=== PATIENT | female | born 1985 | race Caucasian/White ===

== ENCOUNTER 2016-08-28 05:02 | Day surgery (SDC) | payer BC, OTHER ==
[2016-08-26 07:49] VITALS: BMI 67.0
[~2016-08-28] VITALS: Ht 152.4 cm; Wt 71.4 kg
[~2016-08-28 05:02] MED LIST: ASPI-391 PO; CIPR-255 PO; DXM/4 PO; HYDR-3419 PO; ONDA8TAB6 PO; OXYB5TAB74 PO; PHEN-876 PO; PROC1TAB5 PO
[2016-08-28 05:53] VITALS: BP 97/64; PULSE 84; TEMP 36.6; O2SAT 100; Ht 152.4 cm; Wt 71.4 kg
[2016-08-28] MEDS ORDERED: LACTATED RINGER'S 1000ML 1,000 ML IV SCH (06:00)
[2016-08-28] MEDS ORDERED: CEFAZOLIN 2000 MG/60 ML D5W IV SCH (06:00)
[2016-08-28] MEDS ORDERED: MIDAZOLAM HCL 1 MG/ML 2ML VIAL ONE (07:00)
[2016-08-28] MEDS ORDERED: FENTANYL CITRATE INJ 50 MCG/1 ML 2 ML VIAL ONE ×3 (07:00→08:20)
[2016-08-28] MEDS ORDERED: KETAMINE HCL INJ 50 MG/ML 10 ML VIAL ONE (07:00)
--- NOTE | 2016-08-28 07:09 | History & Physical Bridge Note ---
H&P Re-Evaluation Bridge Note: I have examined the patient, reviewed the History & Physical and in the interval since the performance of the History & Physical I have noted the following changes of clinical significance: No changes noted
[2016-08-28] MEDS ORDERED: CONRAY 30% 150ML BOTTLE ONE (07:12)
[2016-08-28] MEDS ORDERED: BELLADONNA/OPIUM SUPP 60 MG SUPP PR ONE ×2 (07:38→08:06)
[2016-08-28] MEDS ORDERED: LABETALOL HCL IV 5 MG/ML 20ML IV PRN (07:45)
[2016-08-28] MEDS ORDERED: MEPERIDINE HCL 25 MG/ML CARP IV PRN (07:45)
[2016-08-28] MEDS ORDERED: FENTANYL CITRATE INJ 50 MCG/1 ML 2 ML VIAL IV PRN (07:45)
[2016-08-28] MEDS ORDERED: EpHEDrine SULFATE INJ 50 MG/ML AMP IV PRN (07:45)
[2016-08-28] MEDS ORDERED: ATROPINE SULFATE 0.1 MG/ML 5ML SYR IV PRN (07:45)
[2016-08-28] MEDS ORDERED: ONDANSETRON INJ 2 MG/ML 2 ML VIAL IV PRN (07:45)
[2016-08-28] MEDS ORDERED: HYDROmorphone INJ 1 MG/ML SYR IV PRN (07:45)
--- NOTE | 2016-08-28 07:50 | [facility] Operative Report ---
Operative Report Operative Date Aug 28, 2016. Pre-Operative Diagnosis left ureteral and renal stones Post-Operative Diagnosis same Procedure(s) Performed cystoscopy, left ureteroscopy, basket stone extraction, stent removal Surgeon chloe It Infrastructure Specialist Surgeon(s) none Estimated Blood Loss 0mL Findings small stones left upper ureter and left lower pole kidney Fluids 600mL Specimens left ureteral and renal stones Drains none Anesthesia LMA Complication(s) None Disposition Recovery Room / PACU Indications left upper ureteral obstructing stone stented last week at outside hospital. She presents for stone removal. Description of Procedure Patient was given general LMA anesthesia and placed in lithotomy position. Her genitals were prepped and draped in sterile fashion. Time out held with team. I placed a 22 fr rigid cystoscope to bladder. The urethra is unremarkable. The UOs are in normal location. There is no inflammation of bladder or debris in bladder. Stent looks clean. I grasped the tip of her stent and withdrew it to the meatus. I placed a stiff wire up left ureter through the stent to the left kidney. I removed the stent and found it to be complete. I then placed a flexible ureteroscope up the left ureter under vision along side the wire. I found her ureteral stone in left upper ureter and used a 2.4 fr zero tip basket to retrieve it. It fit easily down the ureter whole.. I then re-introduced the flexible ureteroscope up ureter and into the kidney. the mid kidney calyces had each a tiny stone which was too small to corn picker. I did retrieve her 3mm left lower pole stone and removed it whole. I left bladder empty and concluded case. I placed a belladonna and opium suppository for post-op pain. She transferred to recovery under my escort, in stable condition. Plan: Home today Pyridium for dysuria x 3 days flomax daily until pain free oral pain meds as needed ASA 3 clean contaminated case 3 seconds fluoro ancef antibiotic integration manager I attest to the content of the Intraoperative Record and any orders documented therein. Any exceptions are noted below.
--- NOTE | 2016-08-28 07:53 | Discharge Instructions ---
Discharge Instructions Date of Service Aug 28, 2016. Admission Reason for Admission: Left Kidney Stone Discharge Discharge Diagnosis / Problem: left ureteral and renal stones Discharge Goals Goal(s): Decrease discomfort, Improve disease control Activity Recommendations Activity Limitations: resume your previous activity Lifting Limitations: none Exercise/Sports Limitations: none May Resume Sexual Activity: when tolerated Shower/Bathe: no limitations Driving or Machine Use: resume 1 day after discharge . Instructions / Follow-Up Instructions / Follow-Up there may be blood in urine for a few days you may have bladder and or left flank pain for a few days take flomax daily until pain free Discharge Diet Recommended Diet: Regular Diet Fluid Restriction: None Procedures Procedures Performed: left ureteroscopy with basket stone extraction and stent removal Pending Studies Studies pending at discharge: no Medical Emergencies . Who to Call and When: Medical Emergencies: If at any time you feel your situation is an emergency, please call 911 immediately. . Non-Emergent Contact Non-Emergency issues call your: Urologist ([phone]) Call Non-Emergent contact if: temperature is above 100.5 . . "Provider Documentation" section prepared by Jessica Pool. VTE Core Measure Inpt VTE Proph given/why not?: SCD's [place] Drug Monitoring Program Search Results: patient reviewed within database, no issues identified
--- NOTE | 2016-08-28 07:56 | DIAGNOSTIC IMAGING REPORT ---
FLUOROSCOPIC IMAGES FROM LEFT RETROGRADE EXAM CLINICAL HISTORY: Cystoscopy. Lithotripsy. Stent exchange. COMPARISON STUDY: No previous studies for comparison. Fluoroscopy time: 3.1 seconds. FINDINGS: 3 fluoroscopic images demonstrate removal of the left ureteral stent with suspected stone extraction. IMPRESSION: Fluoroscopic images from left ureteroscopy and stent removal. Electronically signed by: Selvin Recio M.D. 08/28/2016 7:55 AM Dictated Date/Time: 08/28/2016 7:52 AM
[2016-08-28] MEDS ORDERED: LIDOCAINE HCL 2% 2 ML VIAL (20MG/ML) ONE (08:03)
[2016-08-28] MEDS ORDERED: PROPOFOL IV EMULSION 10 MG/ML 20 ML VIAL IV ONE (08:03)
[2016-08-28 08:50] VITALS: BP 111/55; PULSE 90; TEMP 36.6; O2SAT 97
--- NOTE | 2016-08-28 09:01 | Anesthesiology Progress Note ---
Anesthesia Post Op Note Date & Time Aug 28, 2016 at 09:01 Vital Signs Pain Intensity: 0 Vital Signs Past 12 Hours Date Time Temp Pulse Resp B/P Pulse Ox O2 Delivery O2 Flow Rate FiO2 08/28/16 08:25 95 16 117/69 98 Room Air 08/28/16 08:15 88 16 108/70 98 Room Air 08/28/16 08:05 86 16 99/67 100 Mask 10 08/28/16 07:55 85 16 106/63 100 Mask 10 08/28/16 07:48 36 84 16 103/66 100 Mask 10 08/28/16 05:53 36.6 84 18 97/64 100 Room Air Notes Mental Status: alert / awake / arousable, participated in evaluation Pt Amnestic to Procedure: Yes Nausea / Vomiting: adequately controlled Pain: adequately controlled Airway Patency, RR, SpO2: stable & adequate BP & HR: stable & adequate Hydration State: stable & adequate Anesthetic Complications: no major complications apparent
[2016-08-28 09:25] VITALS: BP 92/65; PULSE 91; O2SAT 97
[2016-08-28 09:55] VITALS: BP 108/74; PULSE 96; O2SAT 98
[2016-08-28] MEDS ORDERED: NURSING VERBAL MED ORDER ONE (10:00)
[2016-08-28] MEDS ORDERED: ONDANSETRON INJ 2 MG/ML 2 ML VIAL IV ONE (11:00)
[2017-03-06] MEDS ORDERED: IBUP-1450 PO (10:33)
[2017-03-06] MEDS ORDERED: TAMO20TA47 PO (10:33)
[2017-03-06] MEDS ORDERED: HYDR2TAB48 PO (10:33)
== END 2016-08-28 10:30 | disposition home or self-care (01) ==
LOC: C.ACU 05:02
PROVIDERS: ATTEND Urology
DX: N20.2 Calculus of kidney with calculus of ureter (principal); C50.412 Malignant neoplasm of upper-outer quadrant of left female breast

== ENCOUNTER → 2017-06-24 | Day surgery (SDC) | payer OTHER ==
[2017-06-17 09:51] VITALS: BMI 37.0
[~2017-06-24] VITALS: Ht 152.4 cm; Wt 86.4 kg
[~2017-06-24] MED LIST changes: -ASPI-391 PO; -CIPR-255 PO; -DXM/4 PO; -HYDR-3419 PO; +LIDOCAINE HCL 2% 2 ML VIAL (20MG/ML) ONE; +NURSING VERBAL MED ORDER ONE; -ONDA8TAB6 PO; +ONDANSETRON INJ 2 MG/ML 2 ML VIAL IV PRN; -OXYB5TAB74 PO; +PANT40TA PO; -PHEN-876 PO; -PROC1TAB5 PO; +PROPOFOL IV EMULSION 10 MG/ML 20 ML VIAL IV ONE; +RANI150T3 PO; +TAMO20TA9 PO
[2017-06-24 11:13] VITALS: Ht 152.4 cm; Wt 86.4 kg
--- NOTE | 2017-06-24 11:49 | Endo History and Physical ---
History & Physical Date of Service: Jun 24, 2017. Chief Complaint: DARK STOOLS Referring Physician: DR. KAUR History of Present Illness Patient with a history of dark stool and some postprandial epigastric discomfort. She presents today for upper endoscopy. She denies use of nonsteroidals and has history notable for a cholecystectomy performed about 7 years ago. She is presently on chemotherapy for breast cancer. Past Surgical History Hx Cardiac Surgery: No Hx Internal Defibrillator: No Hx Pacemaker: No Hx Abdominal Surgery: No (JUAN AND THEN SURGERY AGAIN FOR REMOVAL "BLOOD CLOT ") Hx of Implantable Prosthesis: No Hx Post-Op Nausea and Vomiting: No Hx Cancer Surgery: Yes (LT BREAST MASTECTOMY WITH TE) Hx Thoracic Surgery: No Hx Orthopedic: No Hx Urinary Tract Surgery: Yes (CYSTOSCOPY WITH STENT) Family History Polyp Social History Smoking Status: Never Smoker Hx Substance Use: No Hx Alcohol Use: No Allergies Coded Allergies: Oxycodone (Verified Allergy, Severe, THROAT SWELLING--NOT ALLERGIC TO APAP W/ CODEINE OR VICODIN, 06/17/17) Uncoded Allergies: JEWELRY (Allergy, Unknown, EARRINGS CAUSE REDNESS AND ITCHING, 06/17/17) Current Medications Reported Home Medications Medications Dose Route/Sig Max Daily Dose Days Date Category Zantac (Ranitidine HCl) 150 Mg Tab 150 Mg PO HS 06/17/17 Reported Protonix (Pantoprazole Sodium) 40 Mg Tab 40 Mg PO QAM 06/17/17 Reported Nolvadex (Tamoxifen Citrate) 20 Mg Tab 20 Mg PO QAM 03/06/17 Reported Vital Signs Weight (Kilograms): 86.36 Height (Feet): 5 Height (Inches): 0 Date Time Temp Pulse Resp B/P (MAP) Pulse Ox O2 Delivery O2 Flow Rate FiO2 06/24/17 11:31 36.6 76 18 108/60 (76) 100 Room Air Physical Exam General Appearance: no apparent distress Respiratory/Chest: Auscultation: breath sounds normal Cardiovascular: Heart Auscultation: RRR Abdomen: Inspection & Palpation: soft Assessment and Plan Patient with a history of postprandial discomfort. Given the dark stools will proceed with upper endoscopy today to screen for evidence of peptic ulcer disease. We have discussed the risks of upper endoscopy to include bleeding, infection, perforation aspiration and pain.
--- NOTE | 2017-06-24 12:08 | GI REPORT ---
Procedure Date: 06/24/2017 11:22 AM Procedure: Upper GI endoscopy Indications: Epigastric abdominal pain, Abdominal pain in the right upper quadrant Medicines: Monitored Anesthesia Care Complications: No immediate complications. Estimated blood loss: Minimal. Estimated Blood Loss: Estimated blood loss was minimal. Procedure: Pre-Anesthesia Assessment: - Prior to the procedure, a History and Physical was performed, and patient medications, allergies and sensitivities were reviewed. The patient's tolerance of previous anesthesia was reviewed. - The risks and benefits of the procedure and the sedation options and risks were discussed with the patient. All questions were answered and informed consent was obtained. - Patient identification and proposed procedure were verified prior to the procedure by the physician, the nurse and the environment artist. The procedure was verified in the procedure room. - Pre-procedure physical examination revealed no contraindications to sedation. - ASA Grade Assessment: III - A patient with severe systemic disease. - After reviewing the risks and benefits, the patient was deemed in satisfactory condition to undergo the procedure. - The anesthesia plan was to use monitored anesthesia care (MAC). - Immediately prior to administration of medications, the patient was re-assessed for adequacy to receive sedatives. - The heart rate, respiratory rate, oxygen saturations, blood pressure, adequacy of pulmonary ventilation, and response to care were monitored throughout the procedure. - The physical status of the patient was re-assessed after the procedure. After obtaining informed consent, the endoscope was passed under direct vision. Throughout the procedure, the patient's blood pressure, pulse, and oxygen saturations were monitored continuously. The scope was introduced through the mouth, and advanced to the third part of duodenum. The upper GI endoscopy was accomplished without difficulty. The patient tolerated the procedure well. Findings: The examined esophagus was normal. The Z-line was regular and was found 33 cm from the incisors. Diffuse mild inflammation characterized by congestion (edema), erythema and granularity was found in the entire examined stomach. Biopsies were taken with a cold forceps for histology. Estimated blood loss was minimal. The examined duodenum was normal. Biopsies were taken with a cold forceps for histology. Estimated blood loss was minimal. Impression: - Normal esophagus. - Z-line regular, 33 cm from the incisors. - Bile gastritis. Biopsied. - Normal examined duodenum. Biopsied. Recommendation: - Discharge patient to home (ambulatory). - Advance diet as tolerated today. - Await pathology results. - Use sucralfate tablets 1 gram PO BID for 6 weeks. - If symptoms persist would consider an EUS or RUQ US to evaluate for gallstones. Felipe Hassan D.O. Felipe Hassan, DO 06/24/2017 12:07:47 PM This report has been signed electronically. Note Initiated On: 06/24/2017 11:22 AM I attest to the content of the Intraoperative Record and orders documented therein, exceptions below
--- NOTE | 2017-06-24 12:09 | Discharge Instructions ---
Endoscopy Patient Instructions Date / Procedure(s) Performed Jun 24, 2017. EGD Allergy Information Coded Allergies: Oxycodone (Verified Allergy, Severe, THROAT SWELLING--NOT ALLERGIC TO APAP W/ CODEINE OR VICODIN, 06/17/17) Uncoded Allergies: JEWELRY (Allergy, Unknown, EARRINGS CAUSE REDNESS AND ITCHING, 06/17/17) Discharge Date / Findings Jun 24, 2017. Normal esophagus Normal small intestine Mild gastritis Medication Instructions Reported Home Medications Medications Dose Route/Sig Max Daily Dose Days Date Category Zantac (Ranitidine HCl) 150 Mg Tab 150 Mg PO HS 06/17/17 Reported Protonix (Pantoprazole Sodium) 40 Mg Tab 40 Mg PO QAM 06/17/17 Reported Nolvadex (Tamoxifen Citrate) 20 Mg Tab 20 Mg PO QAM 03/06/17 Reported Provider Instructions Activity Restrictions - No exercising or heavy lifting for 24 hours. - Do not drink alcohol the day of the procedure. - Do not drive a car or operate machinery until the day after the procedure. - Do not make any important decisions or sign important papers in 24 hours after the procedure. Following Day: - Return to full activity which may include returning to work/school. Diet Start your diet with liquids and light foods (jello, soup, juice, toast). Then eat your usual diet if not nauseated. Treatment For Common After Affects For mild abdominal pain, bloating, or excessive gas: - Rest - Eat lightly - Lie on right side Follow-Up Information Follow-up with DR. AKUR as scheduled Try Carafate twice daily for 6 weeks If symptoms persist would suggest further evaluation with an ultrasound of the bile duct or perhaps endoscopic ultrasound Anesthesia Information What You Should Know You have had a procedure that required some medicine to reduce anxiety and discomfort. This treatment is called moderate sedation. After receiving the treatment, you may be sleepy, but you will be able to breathe on your own. The effects of the treatment may last for several hours. Follow these instructions along with Activity/Diet recommendations noted above: * Do NOT do anything where dizziness or clumsiness would be dangerous. * Rest quietly at home today, then you can be up and about tomorrow. * Have a responsible person stay with you the rest of today. * You may have had an I.V. today. If so, you may take the dressing off later today. Recommendations Call your doctor if: * Trouble breathing * Continuous vomiting for more than 24 hours * Temperature above 101 degrees * Severe abdominal pain or bloating * Pain not relieved by pain medicine ordered * There is increased drainage or redness from any incision * A large amount of rectal bleeding greater than 2-3 tablespoons. (If you had a polyp/s removed or have hemorrhoids, a small amount of blood - from the rectum is to be expected.) * You have any unanswered questions or concerns. IN THE EVENT OF A SERIOUS EMERGENCY, GO TO THE NEAREST EMERGENCY ROOM Your discharge instructions were prepared by provider Felipe Hassan. Patient Instructions Signature Page [place] [place] Patient (or Guardian) Signature/Date: I have read and understand the instructions given to me by my caregivers. Caregiver/RN/Doctor Signature/Date: The above-named patient and/or guardian has received patient instructions on this date. + Original Patient Signature Page (only) stays with chart. Please make copy for patient.
[2017-06-24 12:50] VITALS: BP 112/68; PULSE 72; O2SAT 100
--- NOTE | 2017-06-24 13:00 | Anesthesiology Progress Note ---
Anesthesia Post Op Note Date & Time Jun 24, 2017 at 12:59 Vital Signs Pain Intensity: 0 Vital Signs Past 12 Hours Date Time Temp Pulse Resp B/P (MAP) Pulse Ox O2 Delivery O2 Flow Rate FiO2 06/24/17 12:50 72 20 112/68 (83) 100 Room Air 06/24/17 12:30 70 20 105/66 (79) 100 Room Air 06/24/17 12:13 87 18 119/64 (82) 98 Room Air 06/24/17 11:31 36.6 76 18 108/60 (76) 100 Room Air Notes Mental Status: alert / awake / arousable, participated in evaluation Pt Amnestic to Procedure: Yes Nausea / Vomiting: adequately controlled Pain: adequately controlled Airway Patency, RR, SpO2: stable & adequate BP & HR: stable & adequate Hydration State: stable & adequate Anesthetic Complications: no major complications apparent
== END | disposition home or self-care (01) ==
LOC: C.GI 10:47
PROVIDERS: ATTEND Internal Medicine Gastroenterology
DX: K29.50 Unspecified chronic gastritis without bleeding (principal); R10.11 Right upper quadrant pain; Z90.49 Acquired absence of other specified parts of digestive tract; C50.912 Malignant neoplasm of unspecified site of left female breast; Z90.12 Acquired absence of left breast and nipple; Z83.71 Family history of colonic polyps; Z88.5 Allergy status to narcotic agent

== ENCOUNTER 2017-08-09 11:35 | Emergency (ER) | payer OTHER ==
[~2017-08-09] VITALS: Ht 154.9 cm; Wt 91.0 kg
[~2017-08-09 11:35] MED LIST changes: -LIDOCAINE HCL 2% 2 ML VIAL (20MG/ML) ONE; -NURSING VERBAL MED ORDER ONE; -ONDANSETRON INJ 2 MG/ML 2 ML VIAL IV PRN; -PROPOFOL IV EMULSION 10 MG/ML 20 ML VIAL IV ONE; +SUCR1TAB29 PO
[2017-08-09 11:39] VITALS: Ht 154.9 cm; Wt 91.0 kg
[2017-08-09] MEDS ORDERED: KETOROLAC TROMETHAMINE 30 MG/ML VIAL IV STA (11:51)
[2017-08-09] MEDS ORDERED: SODIUM CHLORIDE 0.9% 1000ML 1,000 ML IV STA (11:51)
[2017-08-09] MEDS ORDERED: ONDANSETRON INJ 2 MG/ML 2 ML VIAL IV STA (11:51)
--- NOTE | 2017-08-09 11:59 | EMERGENCY ROOM VISIT NOTE ---
History Report prepared by Aga: Vy Melo Under the Supervision of: Dr. Tyrel Gomez M.D. 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 She states she has a history of kidney stones and she thinks this is what it might be as it feels similar. Movement is not a worsening factor. She notes she took Tylenol but it did She is nauseous but denies any vomiting, fevers, chest pain, LOC, blood in her urine, or the chance of . He does report mild dysuria. Pain is severe in nature when it comes, the pain is pulsating and comes and goes lasting for a few minutes. Mild nausea. 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 A total of ten systems were reviewed and were otherwise negative. Past Medical & Surgical Surgical Problems: (1) Hx of cholecystectomy (2) [place] teeth extracted Family History Cancer Diabetes mellitus Gallbladder disease Kidney disease Kidney stones Seizures Social History Smoking Status: Never Smoker Marital Status: Housing Status: lives with family Occupation Status: employed Current/Historical Medications Scheduled Pantoprazole (Protonix), 40 MG PO QAM Ranitidine Hcl (Zantac), 150 MG PO HS Sucralfate (Carafate), 1 TAB PO BID Tamoxifen (Nolvadex), 20 MG PO QAM Tamsulosin Hcl (Flomax), 0.4 MG PO DAILY Scheduled PRN Ibuprofen Tab (Motrin), 800 MG PO Q8H PRN for Pain Allergies Coded Allergies: Oxycodone (Verified Allergy, Severe, THROAT SWELLING--NOT ALLERGIC TO APAP W/ CODEINE OR VICODIN, 06/17/17) Uncoded Allergies: JEWELRY (Allergy, Unknown, EARRINGS CAUSE REDNESS AND ITCHING, 06/17/17) Physical Exam Vital Signs Date Time Temp Pulse Resp B/P (MAP) Pulse Ox O2 Delivery O2 Flow Rate FiO2 08/09/17 13:52 36.7 78 16 94/79 99 08/09/17 11:39 36.7 78 16 133/85 99 Physical Exam Physical Exam GENERAL: She is oriented to person, place, and time. She appears well- developed and well-nourished. She does not appear distressed. ____ HENT: Exam performed. Head: Normocephalic and atraumatic. Right Ear: External ear normal. No mastoid tenderness. Left Ear: External ear normal. No mastoid tenderness. Mouth/Throat: The oropharynx is clear and moist. No trismus in the jaw. No dental abscesses or uvula swelling. No oropharyngeal exudate or tonsillar abscesses. ____ EYES: Conjunctivae and EOM are normal. Pupils are equal, round, and reactive to light. Right eye exhibits no discharge. Left eye exhibits no discharge. No scleral icterus. ____ NECK: Normal range of motion. Neck supple. No JVD present. No spinous process tenderness present. No carotid bruit present. No rigidity. No tracheal deviation and normal range of motion present. No Brudzinski's sign and no Kernig 's sign noted. ____ CV: Normal rate, regular rhythm, normal heart sounds and intact distal pulses. There is no peripheral edema. Palpable radial pulses bue. ____ PULM/CHEST: Effort normal and breath sounds normal. No respiratory distress. No stridor. She has no wheezes. She has no rales. Chest Wall: She exhibits no tenderness. ____ ABD: Left sided CVA tenderness, LLQ pain on palpation of the abdomen. No rigidity or guarding. Dodson sign negative. No pain on palpation over McBurney 's point. Rovsing negative. MUSC/SKEL: Normal range of motion. There is no peripheral edema, tenderness or deformity. LYMPH: No cervical adenopathy. ____ NEURO: She is alert and oriented to person, place, and time. She has normal strength. No cranial nerve deficit or sensory deficit. Coordination and gait normal. GCS eye subscore is 4. GCS verbal subscore is 5. GCS motor subscore is 6. Cerebellar tests wnl. ____ SKIN: Skin is warm and dry. She is not diaphoretic. ____ PSYCH: She has a normal mood and affect. Her behavior is normal. Judgment and thought content normal. ____ Medical Decision & Procedures ER Provider Diagnostic Interpretation: Radiology results as stated below per my review and radiologist interpretation: ABD/PELVIS WITHOUT FOR STONE HISTORY: 31 years-old Female L flank pain ro rebecca sone acute left-sided flank pain with history of kidney stones COMPARISON: CT of the abdomen 03/26/2010 TECHNIQUE: Multiple axial CT images of the abdomen and pelvis were obtained without contrast. A dose lowering technique was used consistent with the principals of SAMY. FINDINGS: Lung bases appear generally clear. There is no pneumatosis or pneumoperitoneum identified. Imaged inferior cardiac chambers are unremarkable. Prior cholecystectomy. Hepatic steatosis. No intrahepatic biliary ductal dilation. Spleen, pancreas and adrenal glands are within normal limits. 3 mm nonobstructing calculus of the superior pole left kidney. No right-sided renal calculi, ureteral calculi or obstructive uropathy. Ureters and urinary bladder are within normal limits. Linear 7 mm calcification is seen within the region of the left uterine fundus which may reflect a calcified fibroid. Adnexa are unremarkable. Aorta is normal in course and caliber. No bulky adenopathy. No bowel obstruction or focal bowel wall thickening. Appendix appears normal. Subcutaneous device with partially imaged catheter overlies the left anterior upper abdominal wall. Soft tissues are otherwise unremarkable. Mild diastases recti. Bones appear intact. IMPRESSION: 1. 3 mm nonobstructing calculus of the superior pole left kidney. No ureteral calculi or obstructive uropathy. 2. No bowel obstruction or focal bowel wall thickening. Normal appendix. 3. Hepatic steatosis. 4. Prior cholecystectomy. The above report was generated using voice recognition software. It may contain grammatical, syntax or spelling errors. Electronically signed by: Rashad Navarrete M.D. 08/09/2017 12:55 PM Dictated Date/Time: 08/09/2017 12:49 PM Laboratory Results 08/09/17 12:10 Red Blood Count 3.94, Mean Corpuscular Volume 80.5, Mean Corpuscular Hemoglobin 29.4, Mean Corpuscular Hemoglobin Concent 36.6, Mean Platelet Volume 9.2, Neutrophils (%) (Auto) 70.6, Lymphocytes (%) (Auto) 20.7, Monocytes (%) (Auto) 5.4, Eosinophils (%) (Auto) 2.2, Basophils (%) (Auto) 0.3, Neutrophils # (Auto) 2.60, Lymphocytes # (Auto) 0.76, Monocytes # (Auto) 0.20, Eosinophils # (Auto) 0.08, Basophils # (Auto) 0.01 08/09/17 12:10 Test 08/09/17 12:10 08/09/17 12:15 White Blood Count 3.68 K/uL (4.8-10.8) Red Blood Count 3.94 M/uL (4.2-5.4) Hemoglobin 11.6 g/dL (12.0-16.0) Hematocrit 31.7 % (37-47) Mean Corpuscular Volume 80.5 fL (80-100) Mean Corpuscular Hemoglobin 29.4 pg (25-34) Mean Corpuscular Hemoglobin Concent 36.6 g/dl (32-36) Platelet Count 135 K/uL (130-400) Mean Platelet Volume 9.2 fL (7.4-10.4) Neutrophils (%) (Auto) 70.6 % Lymphocytes (%) (Auto) 20.7 % Monocytes (%) (Auto) 5.4 % Eosinophils (%) (Auto) 2.2 % Basophils (%) (Auto) 0.3 % Neutrophils # (Auto) 2.60 K/uL (1.4-6.5) Lymphocytes # (Auto) 0.76 K/uL (1.2-3.4) Monocytes # (Auto) 0.20 K/uL (0.11-0.59) Eosinophils # (Auto) 0.08 K/uL (0-0.5) Basophils # (Auto) 0.01 K/uL (0-0.2) RDW Standard Deviation 38.9 fL (36.4-46.3) RDW Coefficient of Variation 13.5 % (11.5-14.5) Immature Granulocyte % (Auto) 0.8 % Immature Granulocyte # (Auto) 0.03 K/uL (0.00-0.02) Anion Gap 5.0 mmol/L (3-11) Est Creatinine Clear Calc Drug Dose 153.6 ml/min Estimated GFR () 144.7 Estimated GFR (Non- 124.9 BUN/Creatinine Ratio 25.6 (10-20) Calcium Level 9.1 mg/dl (8.5-10.1) Urine Color YELLOW Urine Appearance CLEAR (CLEAR) Urine pH 5.0 (4.5-7.5) Urine Specific Devine 1.022 (1.000-1.030) Urine Protein NEG (NEG) Urine Glucose (UA) NEG (NEG) Urine Ketones NEG (NEG) Urine Occult Blood NEG (NEG) Urine Nitrite NEG (NEG) Urine Bilirubin NEG (NEG) Urine Urobilinogen NEG (NEG) Urine Leukocyte Esterase SMALL (NEG) Urine WBC (Auto) 1-5 /hpf (0-5) Urine RBC (Auto) 0-4 /hpf (0-4) Urine Hyaline Casts (Auto) 1-5 /lpf (0-5) Urine Epithelial Cells (Auto) >30 /lpf (0-5) Urine Bacteria (Auto) 1+ (NEG) Urine Test NEG (NEG) Laboratory results reviewed by me Medications Administered Medications (Trade) Dose Ordered Sig/Frank Route Start Time Stop Time Status Last Admin Dose Admin Sodium Chloride 1,000 ml @ 999 mls/hr Q1H1M STAT IV 08/09/17 11:51 08/09/17 12:51 DC 08/09/17 12:11 999 MLS/HR Ketorolac Tromethamine (Toradol Inj) 15 mg NOW STAT IV 08/09/17 11:51 08/09/17 11:53 DC 08/09/17 12:11 15 MG Ondansetron HCl (Zofran Inj) 4 mg NOW STAT IV 08/09/17 11:51 08/09/17 11:53 DC 08/09/17 12:10 4 MG ED Course 1150: The patient was evaluated in room C5. A complete history and physical exam was performed. 1151: Zofran Inj 4 mg IV Toradol Inj 15 mg IV Sodium Chloride 1000 ml @ 999 mls/hr IV 1323: Vital signs stable. Patient reports her pain is better status post analgesia. Labs within normal limits CT shows kidney stones without hydronephrosis or hydroureter. Dc with analgesia and Flomax. DISCHARGE - Plan of care discussed with patient and questions answered. The patient was given both verbal and printed discharge instructions. The patient verbalized understanding and ability to comply. The patient is to seek outpatient follow up as noted in the discharge instructions. The patient verbalized understanding and ability to comply. The patient is discharged in stable condition. The patient was instructed to return for worsening symptoms. Medical Decision Vital signs stable. Patient reports her pain is better status post analgesia. Labs within normal limits CT shows kidney stones without hydronephrosis or hydroureter. Dc with analgesia and Flomax. DISCHARGE - Plan of care discussed with patient and questions answered. The patient was given both verbal and printed discharge instructions. The patient verbalized understanding and ability to comply. The patient is to seek outpatient follow up as noted in the discharge instructions. The patient verbalized understanding and ability to comply. The patient is discharged in stable condition. The patient was instructed to return for worsening symptoms. Medication Reconcilliation Current Medication List: was personally reviewed by me Blood Pressure Screening Patient's blood pressure: Normal blood pressure Blood pressure disposition: Did not require urgent referral Impression Primary Impression: Kidney stone Scribe Attestation The scribe's documentation has been prepared under my direction and personally reviewed by me in its entirety. I confirm that the note above accurately reflects all work, treatment, procedures, and medical decision making performed by me. The chart was completed utilizing [employer] Speech voice recognition software. Grammatical errors, random word insertions, pronoun errors, and incomplete sentences are an occasional consequence of this system due to software limitations, ambient noise, and hardware issues. Any formal questions or concerns about the content, text, or information contained within the body of this dictation should be directly addressed to the physician for clarification. Departure Information Dispostion Home / Self-Care Prescriptions Tamsulosin Hcl (FLOMAX) 0.4 Mg Cap 0.4 MG PO DAILY for 7 Days, #7 CAP Prov: Tyrel Gomez M.D. 08/09/17 Ibuprofen Tab (MOTRIN) 800 Mg Tab 800 MG PO Q8H Y for Pain, #30 TAB Prov: Tyrel Gomez M.D. 08/09/17 Referrals No Doctor, Assigned (PCP) Forms HOME CARE DOCUMENTATION FORM, IMPORTANT VISIT INFORMATION Patient Instructions My [facility] Additional Instructions Return to the emergency department if you develop fever greater than 100.4, inability to urinate, extreme nausea vomiting
[2017-08-09 12:27] LABS: BASO % 0.3 %; BASO ABS # 0.01 K/uL (0-0.2); EOS % 2.2 %; EOS ABS # 0.08 K/uL (0-0.5); HEMATOCRIT 31.7 % (37-47); HEMOGLOBIN 11.6 g/dL (12.0-16.0); IG# 0.03 K/uL (0.00-0.02); LYMPH % 20.7 %; LYMPH ABS # 0.76 K/uL (1.2-3.4); MEAN CELL VOLUME 80.5 fL (80-100); MEAN CORPUSCULAR HEMOGLOBIN 29.4 pg (25-34); MEAN CORPUSCULAR HGB CONC 36.6 g/dl (32-36); MEAN PLATELET VOLUME 9.2 fL (7.4-10.4); MONO % 5.4 %; NEUT % 70.6 %; PLATELET COUNT 135 K/uL (130-400); RED CELL DISTRIBUTION WIDTH CV 13.5 % (11.5-14.5); RED CELL DISTRIBUTION WIDTH SD 38.9 fL (36.4-46.3); WHITE BLOOD COUNT 3.68 K/uL (4.8-10.8)
[2017-08-09 12:48] LABS: CALCIUM 9.1 mg/dl (8.5-10.1); CREATININE 0.54 mg/dl (0.60-1.20)
--- NOTE | 2017-08-09 12:56 | DIAGNOSTIC IMAGING REPORT ---
ABD/PELVIS WITHOUT FOR STONE HISTORY: 31 years-old Female L flank pain ro kdney sone acute left-sided flank pain with history of kidney stones COMPARISON: CT of the abdomen 03/26/2010 TECHNIQUE: Multiple axial CT images of the abdomen and pelvis were obtained without contrast. A dose lowering technique was used consistent with the principals of SAMY. FINDINGS: Lung bases appear generally clear. There is no pneumatosis or pneumoperitoneum identified. Imaged inferior cardiac chambers are unremarkable. Prior cholecystectomy. Hepatic steatosis. No intrahepatic biliary ductal dilation. Spleen, pancreas and adrenal glands are within normal limits. 3 mm nonobstructing calculus of the superior pole left kidney. No right-sided renal calculi, ureteral calculi or obstructive uropathy. Ureters and urinary bladder are within normal limits. Linear 7 mm calcification is seen within the region of the left uterine fundus which may reflect a calcified fibroid. Adnexa are unremarkable. Aorta is normal in course and caliber. No bulky adenopathy. No bowel obstruction or focal bowel wall thickening. Appendix appears normal. Subcutaneous device with partially imaged catheter overlies the left anterior upper abdominal wall. Soft tissues are otherwise unremarkable. Mild diastases recti. Bones appear intact. IMPRESSION: 1. 3 mm nonobstructing calculus of the superior pole left kidney. No ureteral calculi or obstructive uropathy. 2. No bowel obstruction or focal bowel wall thickening. Normal appendix. 3. Hepatic steatosis. 4. Prior cholecystectomy. The above report was generated using voice recognition software. It may contain grammatical, syntax or spelling errors. Electronically signed by: Rashad Navarrete M.D. 08/09/2017 12:55 PM Dictated Date/Time: 08/09/2017 12:49 PM
[2017-08-09] MEDS ORDERED: TAMS0.4C38 PO (13:35)
[2017-08-09] MEDS ORDERED: IBUP-1451 PO (13:35)
[2017-08-09 13:52] VITALS: BP 94/79; PULSE 78; TEMP 36.7; O2SAT 99
== END 2017-08-09 13:55 | disposition home or self-care (01) ==
LOC: C.EDB 11:36 → C.EDC 13:55
DX: N20.0 Calculus of kidney (principal); Z90.49 Acquired absence of other specified parts of digestive tract; Z88.6 Allergy status to analgesic agent; Z91.048 Other nonmedicinal substance allergy status; Z83.79 Family history of other diseases of the digestive system; Z82.0 Family history of epilepsy and other diseases of the nervous system; Z83.3 Family history of diabetes mellitus; Z84.1 Family history of disorders of kidney and ureter

== ENCOUNTER → 2017-08-14 | Outpatient (CLI) | payer OTHER ==
[~2017-08-14] MED LIST changes: +IBUP-1451 PO; +OPTIRAY 320 IV PRN; +TAMS0.4C38 PO
--- NOTE | 2017-08-14 16:07 | DIAGNOSTIC IMAGING REPORT ---
HEAD COMBO HISTORY: 31 years-old Female C50.412, R51, H53.10 acute headaches with concern for intracranial metastasis. COMPARISON: CT head 02/28/2015, MRI brain 08/31/2015 TECHNIQUE: Multiple axial CT images of the head were obtained both with and without the use of IV contrast. A dose lowering technique was used consistent with the principals of SAMY. FINDINGS: CSF attenuating extra-axial lesion located between the lateral ventricles within the region of the superior quadrigeminal plate cistern suggesting arachnoid cyst is redemonstrated, 2.2 x 2.0 cm, previously measuring 1.9 x [address] study dated 02/28/2015. There is no acute intracranial hemorrhage, midline shift or hydrocephalus. No areas of territorial infarction. There is no abnormal intra-axial or extra-axial enhancement identified. The cerebral venous sinuses appear patent. No calvarial fracture. Unchanged lucent 6 mm lesion of the midline frontal calvarium suggests benign lesion based on stability. Mastoid air cells and middle ear cavities are clear. Mucosal thickening of the imaged maxillary sinuses. Soft tissues and orbits are unremarkable. IMPRESSION: 1. No acute intracranial abnormality identified. 2. Slightly increased size of the extra-axial CSF attenuating structure interposed between the lateral ventricles within the region of the superior quadrigeminal plate cistern suggesting arachnoid cyst, 2.2 cm. 3. No abnormal intra-axial or extra-axial enhancement. The above report was generated using voice recognition software. It may contain grammatical, syntax or spelling errors. Electronically signed by: Rashad Navarrete M.D. 08/14/2017 4:06 PM Dictated Date/Time: 08/14/2017 3:58 PM
== END | disposition home or self-care (01) ==
LOC: C.CTS 15:29
PROVIDERS: ATTEND Physician Assistant Medical
DX: C50.412 Malignant neoplasm of upper-outer quadrant of left female breast (principal); R51 Headache; H53.10 Unspecified subjective visual disturbances

== ENCOUNTER → 2017-09-18 | Outpatient (CLI) | payer OTHER ==
[~2017-09-18] MED LIST changes: +ACET-1256 PO; +GABA-112 PO; +LEVE250T PO; +MAGN400T6 PO; -OPTIRAY 320 IV PRN; +RIBOCAP PO; -TAMS0.4C38 PO; +VITB2 PO
[2017-09-18 13:45] VITALS: BP 100/66; PULSE 83; TEMP 36.5; O2SAT 96
--- NOTE | 2017-09-18 15:18 | Radiation Oncology Follow-Up ---
Radiation Oncology Follow-Up Date of Visit Sep 18, 2017. Reason For Visit One-month follow-up in cancer survivorship care plan Radiation Completion Date finished 08-26-17 Diagnosis (1) Malignant neoplasm of upper-outer quadrant of left female breast Status: Acute Onset Date: 08/14/2016 Histology Subtype: Ductal Stage: ll Permanent Comment: Self detected left breast mass Status post mammography Status post breast and axillary biopsy 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, progesterone receptor positive, HER-2/jeancarlos negative Clinical stage T2 N1 BRCA 1/2 negative Status post chemotherapy with Taxotere, carboplatin, Herceptin, and pertuzumab 6 cycles ongoing treatment with Herceptin Status post skin sparing simple mastectomy and sentinel lymph node biopsy ( attempted) then axillary node dissection Stage ypT1mi ypN0 (i+) M0 Initiation of tamoxifen therapy Status post completion of radiation therapy to the left chest wall, supraclavicular area and axilla. Treatment was completed August 26, 2017. She received 6240 cGy. Last Edited By: Nanda Nathan on Sep 05, 2017 08:16 History of Present Illness Ms. West is without a family history of breast cancer. The patient self detected a left breast mass and was sent for a diagnostic unilateral mammogram on 08/14/2016. She had noted bilateral breast pain for the prior 3-4 months more on the left side. This showed a left breast mass at the 2 o'clock position that was firm and thickened in the area indicated by the patient. The mammogram demonstrated a 2.1 cm mass at the 2:00 stereotactic with irregular margins and surrounding distortions. There were extensive pleomorphic calcifications extending over a 9.5 cm area in the upper outer quadrant of the left breast. Targeted ultrasound demonstrated an oval mass with spiculated margins measuring 2.0 x 2.1 x 1.8 cm at the 2 o'clock position 3 cm from the nipple. Within the left axilla there were 2 abnormal appearing lymph nodes with thickened cortices and mild cortical hypervascularity. These findings were worrisome for breast carcinoma with lymph node metastasis. Ultrasound guided core biopsy was recommended. That same day the patient underwent ultrasound-guided biopsy of the left breast 2 o'clock position 7 cm from the nipple. This revealed an invasive ductal carcinoma with apocrine features and histologic grade 3. The tumor measured 1 cm in greatest dimension by biopsy. Biopsy of a left axillary abnormal lymph node was also positive for metastatic carcinoma measuring 0.6 cm in greatest dimension. Estrogen receptors were strongly positive, 100%). Progesterone receptors were strongly positive (100%) and HER-2/jeancarlos oncogene expression is positive (3+). Accession #: [id number]. The patient underwent a staging PET/CT scan on 08/28/2016. This showed no evidence of metastatic disease. This demonstrated an active irregular mass and level II axillary lymph node measuring 1 cm and to level I lymph nodes measuring 1.1 and 0.7 cm. MRI of the bilateral breasts were performed on 2016. This showed extensive masslike and non-mass like enhancement involving the left breast from the 1:00 to 4 o'clock position. This area measured 11.5 x 3.7 x 6.2 cm. There was also the left axillary lymph nodes appreciated which were abnormal. No right breast abnormalities were appreciated. MRI of the brain on 08/22/2016 was also performed and was negative for metastatic disease. The patient was seen initially by Dr. Hassan and subsequently by Dr. Holt to discuss the role of neoadjuvant systemic chemotherapy. He recommended neoadjuvant systemic chemotherapy. This would consist of Taxotere, Carboplatin , Herceptin and Pertuzumab (TCH P). The patient agreed and she received her first cycle of chemotherapy on 09/09/2016 the patient was ultimately able to complete all cycles of the systemic chemotherapy and tolerated fairly well. He was started on tamoxifen around January 13. She is to continue taking Herceptin every 3 weeks for a total of one year. Clinical examination showed complete resolution of the left upper outer quadrant mass with a persistent small firm palpable node in the left axilla. The patient was seen by Dr. Hassan and by Dr. Storey plastic surgeon for consideration of reconstruction. The ultimate plan was to proceed with a left breast mastectomy and immediate placement of a subpectoral tissue promotional marketing agent. They did discuss the possibility of a prophylactic right mastectomy. The patient however didn't undergo genetic counseling and was BRCA1 and 2 negative. The patient ultimately opted to proceed with a left breast mastectomy only with immediate reconstruction performed on 02/18/2017. The mastectomy specimen revealed a single focus of residual ductal carcinoma measuring less than 1 mm status post neoadjuvant chemotherapy. The distance from the closest margin was 2 cm. No lymphovascular invasion was appreciated. 10 axillary lymph nodes were taken there was malignant cell cluster no larger than 0.2 mm noted in 1 lymph node. The final AJCC pathologic staging was therefore ypTmi pN0(i+), ER positive, ID positive and HER-2/jeancarlos positive. Following surgery the patient started tissue expansion. She has had one injection to date. The planned volume is 550-660 mL. She is getting injections every 2 weeks. The patient is continuing on her Herceptin and tamoxifen. We are seeing her today to discuss the role of adjuvant radiation. She completed conventional radiation therapy to the left chest wall, supraclavicular area and axilla on August 26, 2017. She received 6240 cGy. Interim History She has been doing well over the past month in regards to her breast treatment. The skin healed without difficulty. She does have some mild tanning that has continued. She denies any pain or irritation. She has had no changes of the axilla. She has had no swelling of her arm. She continues on Herceptin every 3 weeks. She was seen by a neurosurgeon in [facility] due to the changes found on the CT of the head. 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 She may at some point have to have this drained. For now it is going to be followed with recheck studies. Once she has the tissue promotional marketing agent removed and the permanent implant placed. The tissue promotional marketing agent did not allow for her to have an MRI of the brain. She was started on Keppra by the neurosurgeon. She states that this does help with her headaches. She does have some issues with mood swings. Allergies Coded Allergies: Oxycodone (Verified Allergy, Severe, THROAT SWELLING--NOT ALLERGIC TO APAP W/ CODEINE OR VICODIN, 06/17/17) Uncoded Allergies: JEWELRY (Allergy, Unknown, EARRINGS CAUSE REDNESS AND ITCHING, 06/17/17) Home Medications Scheduled Levetiracetam (Keppra), 500 MG PO BID Magnesium Oxide (Mag-Ox), 400 MG PO DAILY Pantoprazole (Protonix), 40 MG PO QAM Riboflavin (B-2-400), 400 MG PO DAILY Sucralfate (Carafate), 1 TAB PO BID Tamoxifen (Nolvadex), 20 MG PO QAM Scheduled PRN Acetaminophen (Tylenol), 2 TAB PO Q6 PRN for Fever or Headache Gabapentin (Neurontin), 100 MG PO TID PRN for Fever or Headache Ibuprofen Tab (Motrin), 800 MG PO Q8H PRN for Pain Review of Systems Gastrointestinal: Symptoms: WNL Oral: Symptoms: No Problems Respiratory: Symptoms: WNL Urinary: Symptoms: WNL Skin: Symptoms: No Problems Breast: Right Upper Arm Measurement: 33.0 Right Mid Arm Measurement: 27.5 Right Wrist Measurement: 17.1 Left Upper Arm Measurement: 33.0 Left Mid Arm Measurement: 25.5 Left Wrist Measurement: 17.0 Arm Dominence: Right Patient Cosmetic Evaluation: Good Staff Cosmetic Evalaluation: Good Additional Notes: She completed a distress management report and answered "no" other than she feels nervous and has worry about her diagnosis. She feels depression. She is concerned about her appearance, getting around, sleep, and weight gain that has occurred with treatment. Physical Exam Vital Signs Date Time Temp Pulse Resp B/P (MAP) Pulse Ox O2 Delivery O2 Flow Rate FiO2 09/18/17 13:45 36.5 83 16 100/66 96 ECOG Performance Status: 0 General Appearance: no apparent distress Eyes: normal inspection, PERRL ENT: normal ENT inspection, hearing grossly normal Neck: no adenopathy, thyroid normal Respiratory/Chest: lungs clear, no respiratory distress, no accessory muscle use Breast: Breast examination reveals tissue promotional marketing agent on the left. There is resolving hyperpigmentation. There are no areas of wet or dry desquamation. There are no masses or tenderness and no axillary adenopathy. Using the [place] score of cosmesis she has a good outcome. The right breast showed no masses or tenderness and no axillary adenopathy. Cardiovascular: regular rate, rhythm, no gallop, no murmur Extremities: no pedal edema Neurologic/Psychiatric: no motor/sensory deficits, alert, normal mood/affect Skin: warm/dry Pain Management Patient Reports Pain: No Side: Bilateral Patient Preferred Pain Scale: 0 - 10 Initial Pain Intensity: 0.0 Pain Management Plan She denies pain therefore requires no pain management. Laboratory Laboratory Results: not applicable Pathology Pathology Results: were reviewed, and pertinent findings noted in HPI Imaging Imaging Studies: were reviewed, and pertinent findings noted in HPI Assessment & Plan Plan: Continue with regularly scheduled mammography for the right breast. She will be seeing Dr. Storey discussed removal of the tissue promotional marketing agent in the future and placement of a permanent implant. She is going to continue follow- up with the neurosurgeon in regards to the cystic lesion and there will be plans for future recheck MRIs. We discussed the issues of mood swings and depression. I have asked her to discuss this further with her primary care physician. Today we reviewed a cancer survivorship care plan. A copy of the document was given to the patient. We asked her to return to our office in 6 months. Follow-up mammography will be scheduled through the breast surgeons office. She questioned need for future scanning. I discussed with her that her medical oncologist will follow guidelines for recommendation in regards to future studies. She has an upcoming appointment with their office and will discuss that with them further. Total Time In Follow-Up I spent 20 minutes speaking to the patient in performing examination. I spent 20 minutes reviewing information, preparing the survivorship document, and completing this note. Copy To Eric Storey M.D.; Pascual Zhou, D.O.; Janae Hassan MD; Jose R Gonzalez M.D. (MEDICINE) Problem Qualifiers (1) Malignant neoplasm of upper-outer quadrant of left female breast: Estrogen receptor status: positive Qualified Codes: C50.412 - Malignant neoplasm of upper-outer quadrant of left female breast; Z17.0 - Estrogen receptor positive status [ER+]
== END | disposition home or self-care (01) ==
LOC: C.ONC 13:39
PROVIDERS: ATTEND Physician Assistant Medical
DX: Z08 Encounter for follow-up examination after completed treatment for malignant neoplasm (principal); Z92.3 Personal history of irradiation; Z85.3 Personal history of malignant neoplasm of breast

== ENCOUNTER 2021-05-17 14:34 | Inpatient (IN) ==
[2021-05-17] MEDS ORDERED: SODIUM CHLORIDE 0.9% 1000ML 2,000 ML IV ONE (15:18)
[2021-05-17] MEDS ORDERED: ONDANSETRON INJ 2 MG/ML 2 ML VIAL IV STA (15:20)
[2021-05-17] MEDS ORDERED: FAMOTIDINE 20MG IV PUSH 20 MG/5 ML SYR IV STA (15:20)
[2021-05-17] MEDS ORDERED: ACETAMINOPHEN 1,000 MG/100 ML VIAL IV STA (15:20)
[2021-05-17 15:40] LABS: Alanine Aminotransferase 19 (12-78); Albumin Level 3.8 gm/dl (3.4-5.0); Aspartate Aminotransferase 22 U/L (15-37); BUN Creatinine Ratio 41.5 (10-20); Basophils # (auto) 0.04 K/uL (0-0.2); Basophils % (auto) 0.5 %; Blood Urea Nitrogen 19 mg/dl (7-18); Calcium 9.5 mg/dl (8.5-10.1); Carbon Dioxide 25 mmol/L (21-32); Chloride 98 mmol/L (98-107); Creatinine Clr Calc Pharmacy 133.7 ml/min; Eosinophils # (auto) 0.01 K/uL (0-0.5); Eosinophils % (auto) 0.1 %; Est GFR (African American) 148.3 ml/min; Glucose 124 mg/dl (70-99); Hematocrit (blood only) 33.3 % (37-47); Hemoglobin 11.9 g/dL (12.0-16.0); Immature Granulocytes # (auto) 0.09 K/uL (0.00-0.02); Immature Granulocytes % (auto) 1.2 %; Lipase 98 U/L (73-393); Lymphocytes % (auto) 20.5 %; Magnesium 1.7 mg/dl (1.8-2.4); Mean Corpuscular Hemoglobin 28.3 pg (25-34); Mean Corpuscular Hgb Conc 35.7 g/dL (32-36); Mean Corpuscular Volume 79.1 fL (80-100); Mean Platelet Volume 10.6 fL (7.4-10.4); Monocytes # (auto) 0.48 K/uL (0.11-0.59); Monocytes % (auto) 6.1 %; Neutrophils % (auto) 71.6 %; Platelet Count 257 K/uL (130-400); Potassium 3.4 mmol/L (3.5-5.1); RDW Coefficient of Variation 14.2 % (11.5-14.5); RDW Standard Deviation 39.2 fL (36.4-46.3); Red Blood Count 4.21 M/uL (4.2-5.4); Sodium 137 mmol/L (136-145); White Blood Count 7.82 K/uL (4.8-10.8)
[2021-05-17 15:51] LABS: Alkaline Phosphatase 84 U/L (45-117); Bilirubin,Total 1.1 mg/dl (0.2-1); Globulin 3.8 gm/dl (2.5-4.0); Total Protein 7.6 gm/dl (6.4-8.2); Troponin I < 0.015 ng/ml (0-0.045)
--- NOTE | 2021-05-17 15:55 | XRay Report ---
XR chest 1V portable CLINICAL HISTORY: Atypical chest pain TECHNIQUE: Single frontal radiograph of the chest was obtained. Comparison: Comparison is made to chest one view 05/05/2021 FINDINGS: No lines and tubes are seen. The cardiomediastinal silhouette is normal. The lungs are clear. No evid ence of pleural effusion or pneumothorax. IMPRESSION: No acute chest disease. ACT 112: Negative or not required by law. Electronically signed by: Keo Gillette M.D. 05/17/2021 3:53 PM
[2021-05-17] MEDS ORDERED: OPTIRAY 320 125ml IV ONE (16:40)
[2021-05-17 16:48] LABS: Influenza A virus by PCR Negative (Neg); Influenza B virus by PCR Negative (Neg); RSV by PCR Negative (Neg)
--- NOTE | 2021-05-17 16:48 | CT Scan Report ---
CT head/brain wo con CLINICAL HISTORY: 35 years-old Female with Covid, confusion, amnesia. Acutely altered mental status TECHNIQUE: Multiple axial CT images of the head were obtained without contrast. A dose lowering tech nique was utilized adhering to the principles of ALARA. COMPARISON: Head CT 05/05/2021 FINDINGS: No acute intracranial hemorrhage, midline shift, intra-axial mass, hydrocephalus, territorial ischemi a or abnormal extra-axial collection. Unchanged prominent CSF space versus arachnoid cyst interposed between the lateral ventricles. The calvarium is intact. Trace mastoid effusions. Mild to moderate mucosal thickening with air-fluid levels of the right maxillary, left sphenoid and bilateral frontal sinuses with a few opacified ante rior right ethmoid air cells. IMPRESSION: 1. No acute intracranial abnormality. 2. Acute sinusitis. ACT 112: Negative or not required by law. The above report was generated using voice recognition software. It may contain grammatical, syntax o r spelling errors. Electronically signed by: Holden Navarrete M.D. 05/17/2021 4:47 PM
[2021-05-17 16:51] LABS: SARS CoV2 RNA(COVID-19) InHosp POSITIVE (Negative)
--- NOTE | 2021-05-17 16:55 | CT Scan Report ---
CT angio neck with con, CT angio head w con CLINICAL HISTORY: 35 years-old Female with Covid, confusion, amnesia. Acutely altered mental statu s. COMPARISON STUDY: Head CT of same day and also 05/05/2021. TECHNIQUE: Following the IV administration of 120 mL of Optiray, CT angiogram of the head and neck wa s performed from the aortic arch to the skull apex. Images are reviewed in the axial, sagittal, and c oronal planes. 3-D MIPS images are created and assessed. IV contrast was administered without complic ation. All measurements were calculated based on NASCET criteria. A dose lowering technique was util ized adhering to the principles of ALARA. CT DOSE: 976.85 mGy.cm FINDINGS: Three-vessel morphology of the thoracic aortic arch. Patency of the innominate and imaged subclavian arteries. The common and internal carotid arteries are patent. The middle and anterior cerebral arter ies appear patent. The vertebral arteries are codominant and widely patent. The basilar and posterior cerebral arteries are patent. origin of the right posterior cerebral artery. Cerebral venous s inuses are patent. No aneurysm, dissection, high-grade stenosis or arterial occlusion. Unchanged prom inent CSF space versus arachnoid cyst interposed between the lateral ventricles. No abnormal intracra nial enhancement. The lung apices are clear. There is no pneumothorax. Unremarkable soft tissues. Streak artifact from dental amalgam hardware. Scattered areas of moderate mild to moderate mucosal thickening of the paran chris sinuses with air-fluid levels. No acute fracture. IMPRESSION: 1. Unremarkable CTA of the head and neck. 2. Acute sinus disease. ACT 112: Negative or not required by law. The above report was generated using voice recognition software. It may contain grammatical, syntax o r spelling errors. Electronically signed by: Holden Navarrete M.D. 05/17/2021 4:53 PM
[2021-05-17] MEDS ORDERED: POTASSIUM CHLORIDE CRTAB 20 MEQ TABCR PO STA (17:01)
[2021-05-17] MEDS ORDERED: POT PHOSPHATE MONOBASIC W/ SOD TAB PO STA (17:01)
[2021-05-17] MEDS ORDERED: MAGNESIUM SULFATE / D5W 1 GM/100 ML BAG IV STA (17:01)
--- NOTE | 2021-05-17 17:30 | Emergency Department Note ---
Impression & Plan COVID-19, Generalized weakness, Hypokalemia, Dehydration, Hypophosphatemia, Hypomagnesemia ED Provider Note NAME: PHILLY GUY AGE: 35 SEX: F ARRIVES VIA: Ambulance INFORMANT: Patient ED PROVIDER(S): Howard Zeng MD CHIEF COMPLAINT: generalized weakness, nausea, covid-19. PLAN: Disposition: MEDICAL DECISION MAKING: The patient is a pleasant 35-year-old woman with a past medical history of seizure disorder on Keppra who presents to the emergency department for evaluation of generalized weakness, nausea with decreased oral intake in the setting of being diagnosed with COVID-19 with symptoms that began last week. She reports that she does not recall the details of events today even though it is apparent that the patient herself called the ambulance. She endorses feeling dazed and not sure exactly what led to her arriving to the hospital. She denies having any recent seizures but admits a "small one" could have been possible. She denies any falls or isolated pain to her knowledge. She reports she lives alone with her children the eldest who is 14 and taking care of the younger sibling while the patient is in the emergency department however she reports the children's father would be available if needed to look after the children. She reports continued cough but denies chest pain or shortness of breath. She is not vaccinated for COVID-19. Of note, the patient was seen in the emergency department on 05/05 when she was diagnosed with similar complaints of generalized weakness/leg weakness, lightheadedness and dizziness that have been ongoing for the past month. On arrival the patient is fatigued, uncomfortable no acute distress, afebrile, HR 90-100s and otherwise stable vital signs. She appears clinically dry. She exhibits generalized weakness without focal deficits. DTRs 1+. No clonus. EKG without overt acute ischemia. Chest x-ray negative for acute cardiopulmonary process. WBC and platelets within normal limits. H/H similar to prior range of values. Chemistry without metabolic acidosis. BUN/creatinine > 40 consistent with the patient's clinically dry appearance. Potassium 3.4, phosphorus 2.0 magnesium 1.7 with repletion initiated. LFTs unremarkable. Troponin negative/undetectable. CPK wnl. Lipase is not elevated. TSH within normal limits. Medical alcohol was undetectable. Patient's COVID-19 continues to be positive. CT of the head demonstrates sinusitis and otherwise no acute intracranial process, i.e. no ICH, ischemia or severe narrowing or occlusion of large vessels. Upon re-evaluation the patient did feel improved following IVF hydration. HR improved. Suspect symptoms likely 2/2 dehydration in the setting of her Covid-19 infection. Weakness is generalized though somewhat more in LE. Given reflexes are present, GBS is not likely. We agreed to reassess after her IVF and electrolyte repletion was completed and if continued to improved, plan would be for outpatient follow-up. Patient was signed out to Dr. Bucio at change of shift with reassessment after treatment pending. Triage Nursing notes reviewed and agree them. Prior medical records reviewed Vital Signs: reviewed and remarkable for no significant abnormalities Differential diagnosis: Infection, dehydration, metabolic abnormality, hypo/hyperglycemia, electrolyte disturbance, anemia, hypoxia, cardiac sources, intracerebral event, toxicologic, neurologic, as well as other pathologies. ER treatment provided: See below. Diagnostics interpreted by me: ECG: Normal sinus rhythm, 86 bpm, no ectopy, nonspecific ST and T wave abnormality, no overt ST elevation or depression, QTC 490, QRS 70. Cardiac Monitoring: An order for continuous cardiac monitoring was placed and demonstrated sinus rhythm, 86 bpm, no ectopy. Laboratory studies: See below Imaging studies: See below HPI: The patient is a pleasant 35-year-old woman with a past medical history of seizure disorder on [facility] who presents to the emergency department for evaluation of generalized weakness, nausea with decreased oral intake in the setting of being diagnosed with COVID-19 with symptoms that began last week. She reports that she does not recall the details of events today even though it is apparent that the patient herself called the ambulance. She endorses feeling dazed and not sure exactly what led to her arriving to the hospital. She denies having any recent seizures but admits a "small one" could have been possible. She denies any falls or isolated pain to her knowledge. She reports she lives alone with her children the eldest who is 14 and taking care of the younger sibling while the patient is in the emergency department however she reports the children's father would be available if needed to look after the children. She reports continued cough but denies chest pain or shortness of breath. She is not vaccinated for COVID-19. Of note, the patient was seen in the emergency department on 05/05 when she was diagnosed with similar complaints of generalized weakness/leg weakness, lightheadedness and dizziness that have been ongoing for the past month. ROS: See above HPI for pertinent positives & negatives. A total of 10 systems reviewed and were otherwise negative. PAST MEDICAL HISTORY:See Below PAST SURGICAL HISTORY:See Below FAMILY HISTORY:See Below SOCIAL HISTORY:See Below HOME MEDICATIONS:See Below ALLERGIES:See Below VITALS:See Below PHYSICAL EXAMINATION: GENERAL: Awake, alert, fatigued-appearing, in no distress HENT: Normocephalic, atraumatic. Oropharynx with dry mucous membranes and otherwise unremarkable. EYES: Normal conjunctiva. Sclera non-icteric. EOMI. No nystamgus. PEARRL. NECK: Supple. No nuchal rigidity. FROM. No JVD. RESPIRATORY: Clear to auscultation. CARDIAC: Regular rate, normal rhythm. Extremities warm and well perfused. Pulses equal. ABDOMEN: Soft, non-distended. No tenderness to palpation. No rebound or guarding. No masses. RECTAL: Deferred. MUSCULOSKELETAL: Chest examination reveals no tenderness. The back is symmetrical on inspection without obvious abnormality. There is no CVA tende rness to palpation. No joint edema. LOWER EXTREMITIES: Calves are equal size bilaterally and non-tender. No edema. No discoloration. NEURO: Normal sensorium. No focal sensory or motor deficits noted. Generalized weakness with 4/5 strength x 4 EXT. Intact finger to nose and alternating palms. DTRs 1+ bilaterally. No clonus. SKIN: No rash or jaundice noted. 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 Treatment was completed August 26, 2017. 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, progesterone receptor positive, HER-2/jeancarlos negative Clinical stage T2 N1 BRCA 1/2 negative Status post chemotherapy with Taxotere, carboplatin, Herceptin, and pertuzumab 6 cycles ongoing treatment with Herceptin Status post skin sparing simple mastectomy and sentinel lymph node biopsy (attempted) then axillary node dissection Stage ypT1mi ypN0 (i+) M0 Initiation of tamoxifen therapy" On 03/06/17 11:44 Nanda Nathan wrote "Self detected left breast mass Status post mammography Status post breast and axillary biopsy 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, progesterone receptor positive, HER-2/jeancarlos negative Clinical stage T2 N1 BRCA 1/2 negative Status post chemotherapy with Taxotere, carboplatin, Herceptin, and pertuzumab Status post skin sparing simple mastectomy and sentinel lymph node biopsy in (attempted) axillary node dissection Stage ypT1mi ypN0 (i+) M0" Migraine Surgical History Hx of cholecystectomy Social History Smoking Status: Never smoker Preferred Language: [place] Feels Safe at Home: Yes Allergies Allergies Allergy/AdvReac Type Severity Reaction Status Date / Time oxycodone Allergy Severe THROAT Verified 05/17/21 15:16 SWELLING--NOT ALLERGIC TO APAP W/ CODEINE OR VICODIN JEWELRY Allergy Unknown EARRINGS Uncoded 05/17/21 15:16 CAUSE REDNESS AND ITCHING Home Meds Home Medications Medication Instructions Recorded Confirmed levetiracetam 750 mg tablet 750 mg PO Q12 04/13/21 05/17/21 meclizine 25 mg tablet 25 mg PO DAILY PRN 04/13/21 05/17/21 metoclopramide HCl 10 mg tablet 10 mg PO Q8 PRN 05/05/21 05/17/21 omeprazole 40 mg capsule,delayed 40 mg PO DAILY 05/05/21 05/17/21 release ondansetron 4 mg disintegrating 4 mg PO TID PRN 05/05/21 05/17/21 tablet Previous Rx's Medication Instructions Recorded tamsulosin 0.4 mg capsule (Flomax) 0.4 mg PO DAILY #10 cap 04/13/21 ondansetron 4 mg disintegrating 4 mg PO Q6H PRN #14 tab 05/17/21 tablet Results & Data (ED) Vital Signs Vital Signs - 24 hr 05/17/21 14:43 05/17/21 15:15 05/17/21 16:05 Temperature 36.7 C Temperature Source Oral Pulse Rate 94 H 110 H Pulse Rate [Apical] 86 Pulse Rhythm [Apical] Pulse Strength [Apical] Respiratory Rate 20 17 Respiratory Effort / Characteristics Respiratory Depth Blood Pressure 133/91 Blood Pressure [Right Arm] 121/88 Blood Pressure Mean 105 Blood Pressure Mean [Right Arm] 99 Blood Pressure Position [Right Arm] Pulse Oximetry 100 98 100 Oxygen Delivery Method Room Air Room Air Room Air Sepsis Recent Fever Within 48 Hours No Sepsis New/Unexplained Change in Mental Status No Sepsis Action Taken by Nursing No Action Required 05/17/21 17:58 05/17/21 19:00 Temperature Temperature Source Pulse Rate Pulse Rate [Apical] 89 87 Pulse Rhythm [Apical] Regular Pulse Strength [Apical] Normal Respiratory Rate 16 16 Respiratory Effort / Characteristics Non-Labored Spontaneous Respiratory Depth Normal Blood Pressure Blood Pressure [Right Arm] 118/82 122/83 Blood Pressure Mean Blood Pressure Mean [Right Arm] 94 96 Blood Pressure Position [Right Arm] Semi-fowlers Pulse Oximetry 98 100 Oxygen Delivery Method Room Air Room Air Sepsis Recent Fever Within 48 Hours Sepsis New/Unexplained Change in Mental Status Sepsis Action Taken by Nursing Laboratory Data Attestation: I reviewed the patient's lab results. Result diagrams: 05/17/21 14:40 05/17/21 14:40 Lab Results 05/17/21 05/17/21 05/17/21 Range/Units 14:40 14:40 14:40 WBC 7.82 (4.8-10.8) K/uL RBC 4.21 (4.2-5.4) M/uL Hgb 11.9 L (12.0-16.0) g/dL Hct 33.3 L (37-47) % MCV 79.1 L (80-100) fL MCH 28.3 (25-34) pg MCHC 35.7 (32-36) g/dL RDW Std Deviation 39.2 (36.4-46.3) fL RDW Coeff of Jayda 14.2 (11.5-14.5) % Plt Count 257 (130-400) K/uL MPV 10.6 H (7.4-10.4) fL Immature Gran % (Auto) 1.2 % Neut % (Auto) 71.6 % Lymph % (Auto) 20.5 % [place] % (Auto) 6.1 % Eos % (Auto) 0.1 % Baso % (Auto) 0.5 % Neut # (Auto) 5.60 (1.4-6.5) K/uL Lymph # (Auto) 1.60 (1.2-3.4) K/uL [place] # (Auto) 0.48 (0.11-0.59) K/uL Eos # (Auto) 0.01 (0-0.5) K/uL Baso # (Auto) 0.04 (0-0.2) K/uL Immature Gran # (Auto) 0.09 H (0.00-0.02) K/uL Sodium 137 (136-145) mmol/L Potassium 3.4 L (3.5-5.1) mmol/L Chloride 98 (98-107) mmol/L Carbon Dioxide 25 (21-32) mmol/L Anion Gap 14.0 H (3-11) BUN 19 H (7-18) mg/dl Creatinine 0.46 L (0.6-1.2) mg/dl Est Cr Clr Drug Dosing 133.7 ml/min Est GFR ( Amer) 148.3 ml/min Est GFR (Non-Af Amer) 128.0 ml/min BUN/Creatinine Ratio 41.5 H (10-20) Glucose 124 H (70-99) mg/dl Calcium 9.5 (8.5-10.1) mg/dl Phosphorus 2.0 L (2.5-4.9) mg/dl Magnesium 1.7 L (1.8-2.4) mg/dl Total Bilirubin 1.1 H (0.2-1) mg/dl AST 22 (15-37) U/L ALT 19 (12-78) Alkaline Phosphatase 84 (45-117) U/L Total Creatine Kinase 21 L (26-192) U/L Troponin I < 0.015 (0-0.045) ng/ml Total Protein 7.6 (6.4-8.2) gm/dl Albumin 3.8 (3.4-5.0) gm/dl Globulin 3.8 (2.5-4.0) gm/dl Albumin/Globulin Ratio 1.0 (0.9-2) Lipase 98 (73-393) U/L TSH 2.970 (0.300-4.500) uIu/ml HCG, Qual (Negative) Urine Color Urine Appearance (Clear) Urine pH (4.5-7.5) Ur Specific [place] (1.000-1.030) Urine Protein (Negative) Urine Glucose (UA) (Negative) Urine Ketones (Negative) Urine Blood (Negative) Urine Nitrite (Negative) Urine Bilirubin (Negative) Urine Urobilinogen (Negative) Ur Leukocyte Esterase (Negative) Urine WBC (Auto) (0-5) /hpf Urine RBC (Auto) (0-4) /hpf U Hyaline Cast (Auto) (0-5) /lpf U Epithel Cells (Auto) (0-5) /lpf Urine Bacteria (Auto) (Negative) Urine Crystals Other Crystals (None Prsent) Urine Trichomonas (None Prsent) Urine Opiates Screen (Neg) Ur Methadone, Qual (Neg) Urine Barbiturates (Neg) Ur Phencyclidine (PCP) (Neg) U Amphetamin/Meth Scrn (Neg) MDMA (Ecstasy) Screen (Neg) U Benzodiazepines Scrn (Neg) Ur Cocaine Metabolite (Neg) U Marijuana (THC) Screen (Neg) Ethyl Alcohol mg/dL (0-3) mg/dl SARS-CoV-2 (PCR) (Negative) Influenza Type A (PCR) (Neg) Influenza Type B (PCR) (Neg) RSV (RT-PCR) (Neg) 05/17/21 05/17/21 05/17/21 Range/Units 14:40 15:41 16:00 WBC (4.8-10.8) K/uL RBC (4.2-5.4) M/uL Hgb (12.0-16.0) g/dL Hct (37-47) % MCV (80-100) fL MCH (25-34) pg MCHC (32-36) g/dL RDW Std Deviation (36.4-46.3) fL RDW Coeff of Jayda (11.5-14.5) % Plt Count (130-400) K/uL MPV (7.4-10.4) fL Immature Gran % (Auto) % Neut % (Auto) % Lymph % (Auto) % [place] % (Auto) % Eos % (Auto) % Baso % (Auto) % Neut # (Auto) (1.4-6.5) K/uL Lymph # (Auto) (1.2-3.4) K/uL [place] # (Auto) (0.11-0.59) K/uL Eos # (Auto) (0-0.5) K/uL Baso # (Auto) (0-0.2) K/uL Immature Gran # (Auto) (0.00-0.02) K/uL Sodium (136-145) mmol/L Potassium (3.5-5.1) mmol/L Chloride (98-107) mmol/L Carbon Dioxide (21-32) mmol/L Anion Gap (3-11) BUN (7-18) mg/dl Creatinine (0.6-1.2) mg/dl Est Cr Clr Drug Dosing ml/min Est GFR ( Amer) ml/min Est GFR (Non-Af Amer) ml/min BUN/Creatinine Ratio (10-20) Glucose (70-99) mg/dl Calcium (8.5-10.1) mg/dl Phosphorus (2.5-4.9) mg/dl Magnesium (1.8-2.4) mg/dl Total Bilirubin (0.2-1) mg/dl AST (15-37) U/L ALT (12-78) Alkaline Phosphatase (45-117) U/L Total Creatine Kinase (26-192) U/L Troponin I (0-0.045) ng/ml Total Protein (6.4-8.2) gm/dl Albumin (3.4-5.0) gm/dl Globulin (2.5-4.0) gm/dl Albumin/Globulin Ratio (0.9-2) Lipase (73-393) U/L TSH (0.300-4.500) uIu/ml HCG, Qual Negative (Negative) Urine Color Urine Appearance (Clear) Urine pH (4.5-7.5) Ur Specific [place] (1.000-1.030) Urine Protein (Negative) Urine Glucose (UA) (Negative) Urine Ketones (Negative) Urine Blood (Negative) Urine Nitrite (Negative) Urine Bilirubin (Negative) Urine Urobilinogen (Negative) Ur Leukocyte Esterase (Negative) Urine WBC (Auto) (0-5) /hpf Urine RBC (Auto) (0-4) /hpf U Hyaline Cast (Auto) (0-5) /lpf U Epithel Cells (Auto) (0-5) /lpf Urine Bacteria (Auto) (Negative) Urine Crystals Other Crystals (None Prsent) Urine Trichomonas (None Prsent) Urine Opiates Screen (Neg) Ur Methadone, Qual (Neg) Urine Barbiturates (Neg) Ur Phencyclidine (PCP) (Neg) U Amphetamin/Meth Scrn (Neg) MDMA (Ecstasy) Screen (Neg) U Benzodiazepines Scrn (Neg) Ur Cocaine Metabolite (Neg) U Marijuana (THC) Screen (Neg) Ethyl Alcohol mg/dL < 3.0 (0-3) mg/dl SARS-CoV-2 (PCR) POSITIVE A* (Negative) Influenza Type A (PCR) Negative (Neg) Influenza Type B (PCR) Negative (Neg) RSV (RT-PCR) Negative (Neg) 05/17/21 05/17/21 Range/Units 17:04 17:04 WBC (4.8-10.8) K/uL RBC (4.2-5.4) M/uL Hgb (12.0-16.0) g/dL Hct (37-47) % MCV (80-100) fL MCH (25-34) pg MCHC (32-36) g/dL RDW Std Deviation (36.4-46.3) fL RDW Coeff of Jayda (11.5-14.5) % Plt Count (130-400) K/uL MPV (7.4-10.4) fL Immature Gran % (Auto) % Neut % (Auto) % Lymph % (Auto) % [place] % (Auto) % Eos % (Auto) % Baso % (Auto) % Neut # (Auto) (1.4-6.5) K/uL Lymph # (Auto) (1.2-3.4) K/uL [place] # (Auto) (0.11-0.59) K/uL Eos # (Auto) (0-0.5) K/uL Baso # (Auto) (0-0.2) K/uL Immature Gran # (Auto) (0.00-0.02) K/uL Sodium (136-145) mmol/L Potassium (3.5-5.1) mmol/L Chloride (98-107) mmol/L Carbon Dioxide (21-32) mmol/L Anion Gap (3-11) BUN (7-18) mg/dl Creatinine (0.6-1.2) mg/dl Est Cr Clr Drug Dosing ml/min Est GFR ( Amer) ml/min Est GFR (Non-Af Amer) ml/min BUN/Creatinine Ratio (10-20) Glucose (70-99) mg/dl Calcium (8.5-10.1) mg/dl Phosphorus (2.5-4.9) mg/dl Magnesium (1.8-2.4) mg/dl Total Bilirubin (0.2-1) mg/dl AST (15-37) U/L ALT (12-78) Alkaline Phosphatase (45-117) U/L Total Creatine Kinase (26-192) U/L Troponin I (0-0.045) ng/ml Total Protein (6.4-8.2) gm/dl Albumin (3.4-5.0) gm/dl Globulin (2.5-4.0) gm/dl Albumin/Globulin Ratio (0.9-2) Lipase (73-393) U/L TSH (0.300-4.500) uIu/ml HCG, Qual (Negative) Urine Color [place] Urine Appearance Turbid A (Clear) Urine pH 7.0 (4.5-7.5) Ur Specific [place] > 1.045 H (1.000-1.030) Urine Protein 1+ H (Negative) Urine Glucose (UA) Negative (Negative) Urine Ketones 4+ H (Negative) Urine Blood 1+ H (Negative) Urine Nitrite Negative (Negative) Urine Bilirubin Negative (Negative) Urine Urobilinogen Negative (Negative) Ur Leukocyte Esterase 3+ H (Negative) Urine WBC (Auto) >30 H (0-5) /hpf Urine RBC (Auto) 5-10 H (0-4) /hpf U Hyaline Cast (Auto) 0 (0-5) /lpf U Epithel Cells (Auto) >30 H (0-5) /lpf Urine Bacteria (Auto) 1+ H (Negative) Urine Crystals Not Reportable Other Crystals Ammonium Biurate A (None Prsent) Urine Trichomonas Present H (None Prsent) Urine Opiates Screen Neg (Neg) Ur Methadone, Qual Neg (Neg) Urine Barbiturates Neg (Neg) Ur Phencyclidine (PCP) Neg (Neg) U Amphetamin/Meth Scrn Neg (Neg) MDMA (Ecstasy) Screen Neg (Neg) U Benzodiazepines Scrn Neg (Neg) Ur Cocaine Metabolite Neg (Neg) U Marijuana (THC) Screen Neg (Neg) Ethyl Alcohol mg/dL (0-3) mg/dl SARS-CoV-2 (PCR) (Negative) Influenza Type A (PCR) (Neg) Influenza Type B (PCR) (Neg) RSV (RT-PCR) (Neg) Administered Medications Discontinued Medications Sodium Chloride (Nss 1000ml) 2,000 mls @ 999 mls/hr IV .Q2H1M ONE Stop: 05/17/21 17:18 Last Infusion: 05/17/21 20:34 Dose: 999 mls/hr Documented by: [id number] Admin: 05/17/21 15:41 Dose: 999 mls/hr Documented by: [id number] Acetaminophen (Ofirmev) 1,000 mg in 100 mls @ 400 mls/hr IV NOW STA Stop: 05/17/21 15:34 Last Infusion: 05/17/21 17:35 Dose: 0 mls/hr Documented by: [id number] Admin: 05/17/21 15:41 Dose: 400 mls/hr Documented by: [id number] Famotidine (Pepcid 20mg Iv Push) 20 mg in 5 mls @ 2.5 mls/min IV NOW STA Stop: 05/17/21 15:21 Last Admin: 05/17/21 15:41 Dose: 2.5 mls/min Documented by: [id number] Magnesium Sulfate/Dextrose (Magnesium Sulfate / D5w) 1 gm in 100 mls @ 100 m ls/hr IV NOW STA Stop: 05/17/21 18:00 Last Infusion: 05/17/21 19:30 Dose: 100 mls/hr Documented by: [id number] Admin: 05/17/21 17:54 Dose: 100 mls/hr Documented by: [id number] Prochlorperazine (Compazine) 1 mls @ 1 mls/min IV ONE ONE Stop: 05/17/21 18:23 Last Admin: 05/17/21 18:47 Dose: 1 mls/min Documented by: [id number] Ioversol (Optiray 320 125ml) 120 ml IV ONCE ONE Stop: 05/17/21 16:41 Last Admin: 05/17/21 16:40 Dose: 120 ml Documented by: [id number] Ondansetron HCl (Ondansetron Inj 2 Mg/Ml 2 Ml Vial) 4 mg IV NOW STA Stop: 05/17/21 15:21 Last Admin: 05/17/21 15:41 Dose: 4 mg Documented by: [id number] Potassium Chloride (Potassium Chloride Crtab 20 Meq Tabcr) 40 meq PO NOW STA Stop: 05/17/21 17:02 Last Admin: 05/17/21 17:53 Dose: 40 meq Documented by: [id number] Potassium Phosphate (Pot Phosphate Monobasic W/ Sod Tab) 2 tab PO NOW STA Stop: 05/17/21 17:02 Last Admin: 05/17/21 17:53 Dose: 2 tab Documented by: [id number] Imaging Data Radiologist's Impression: Head CT 05/17/21 15:14 CT head/brain wo con CLINICAL HISTORY: 35 years-old Female with Covid, confusion, amnesia. Acutely altered mental status TECHNIQUE: Multiple axial CT images of the head were obtained without contrast. A dose lowering technique was utilized adhering to the principles of ALARA. COMPARISON: Head CT 05/05/2021 FINDINGS: No acute intracranial hemorrhage, midline shift, intra-axial mass, hydrocephalus, territorial ischemia or abnormal extra-axial collection. Unchanged prominent CSF space versus arachnoid cyst interposed between the lateral ventricles. The calvarium is intact. Trace mastoid effusions. Mild to moderate mucosal thickening with air-fluid levels of the right maxillary, left sphenoid and bilateral frontal sinuses with a few opacified anterior right ethmoid air cells. IMPRESSION: 1. No acute intracranial abnormality. 2. Acute sinusitis. ACT 112: Negative or not required by law. The above report was generated using voice recognition software. It may contain grammatical, syntax or spelling errors. Electronically signed by: Holden Navarrete M.D. 05/17/2021 4:47 PM Head CTA 05/17/21 15:14 CT angio neck with con, CT angio head w con CLINICAL HISTORY: 35 years-old Female with Covid, confusion, amnesia. Acutely altered mental status. COMPARISON STUDY: Head CT of same day and also 05/05/2021. TECHNIQUE: Following the IV administration of 120 mL of Optiray, CT angiogram of the head and neck was performed from the aortic arch to the skull apex. Images are reviewed in the axial, sagittal, and coronal planes. 3-D MIPS images are created and assessed. IV contrast was administered without complication. All measurements were calculated based on NASCET criteria. A dose lowering technique was utilized adhering to the principles of ALARA. CT DOSE: 976.85 mGy.cm FINDINGS: Three-vessel morphology of the thoracic aortic arch. Patency of the innominate and imaged subclavian arteries. The common and internal carotid arteries are patent. The middle and anterior cerebral arteries appear patent. The vertebral arteries are codominant and widely patent. The basilar and posterior cerebral arteries are patent. origin of the right posterior cerebral artery. Cer ebral venous sinuses are patent. No aneurysm, dissection, high-grade stenosis or arterial occlusion. Unchanged prominent CSF space versus arachnoid cyst interposed between the lateral ventricles. No abnormal intracranial enhancement. The lung apices are clear. There is no pneumothorax. Unremarkable soft tissues. Streak artifact from dental amalgam hardware. Scattered areas of moderate mild to moderate mucosal thickening of the paranasal sinuses with air-fluid levels. No acute fracture. IMPRESSION: 1. Unremarkable CTA of the head and neck. 2. Acute sinus disease. ACT 112: Negative or not required by law. The above report was generated using voice recognition software. It may contain grammatical, syntax or spelling errors. Electronically signed by: Holden Navarrete M.D. 05/17/2021 4:53 PM Neck CTA 05/17/21 15:14 CT angio neck with con, CT angio head w con CLINICAL HISTORY: 35 years-old Female with Covid, confusion, amnesia. Acutely altered mental status. COMPARISON STUDY: Head CT of same day and also 05/05/2021. TECHNIQUE: Following the IV administration of 120 mL of Optiray, CT angiogram of the head and neck was performed from the aortic arch to the skull apex. Images are reviewed in the axial, sagittal, and coronal planes. 3-D MIPS images are created and assessed. IV contrast was administered without complication. All measurements were calculated based on NASCET criteria. A dose lowering technique was utilized adhering to the principles of ALARA. CT DOSE: 976.85 mGy.cm FINDINGS: Three-vessel morphology of the thoracic aortic arch. Patency of the innominate and imaged subclavian arteries. The common and internal carotid arteries are pa tent. The middle and anterior cerebral arteries appear patent. The vertebral arteries are codominant and widely patent. The basilar and posterior cerebral arteries are patent. origin of the right posterior cerebral artery. Cerebral venous sinuses are patent. No aneurysm, dissection, high-grade stenosis or arterial occlusion. Unchanged prominent CSF space versus arachnoid cyst interposed between the lateral ventricles. No abnormal intracranial enhancement. The lung apices are clear. There is no pneumothorax. Unremarkable soft tissues. Streak artifact from dental amalgam hardware. Scattered areas of moderate mild to moderate mucosal thickening of the paranasal sinuses with air-fluid levels. No acute fracture. IMPRESSION: 1. Unremarkable CTA of the head and neck. 2. Acute sinus disease. ACT 112: Negative or not required by law. The above report was generated using voice recognition software. It may contain grammatical, syntax or spelling errors. Electronically signed by: Holden Navarrete M.D. 05/17/2021 4:53 PM Chest X-Ray 05/17/21 15:15 XR chest 1V portable CLINICAL HISTORY: Atypical chest pain TECHNIQUE: Single frontal radiograph of the chest was obtained. Comparison: Comparison is made to chest one view 05/05/2021 FINDINGS: No lines and tubes are seen. The cardiomediastinal silhouette is normal. The lungs are clear. No evidence of pleural effusion or pneumothorax. IMPRESSION: No acute chest disease. ACT 112: Negative or not required by law. Electronically signed by: Keo Gillette M.D. 05/17/2021 3:53 PM Venous Doppler Study 05/17/21 21:07 US venous doppler LE CLINICAL HISTORY: Bilateral leg pain COMPARISON: None available at the time of this dictation. TECHNIQUE: Bilateral lower extremity real-time compression venous ultrasound with Color Doppler imaging. Utilizing real-time ultrasonic imaging multiple real time high-resolution ultrasonic images with compression and noncompression maneuvers of the deep venous system in addition to color doppler imaging were performed from the common femoral vein through the proximal calf veins. FINDINGS: Currently there is normal compressibility of the deep venous system from the common femoral vein through the proximal calf veins. No current evidence of acute thrombosis is identified. Impression: No evidence of deep venous thrombus. ACT 112: Negative or not required by law. Electronically signed by: Chris Zhu M.D. 05/17/2021 10:03 PM Discharge Plan Visit Data Chief Complaint: Weakness Stated Complaint: WEAKNESS, COVID + Discharge Problem: COVID-19, Generalized weakness, Hypokalemia, Dehydration, Hypophosphatemia, Hypomagnesemia Patient Disposition: Being Evaluated by Hospitalist Condition: Good Discharge Instructions Krames/Other Patient Handouts: 2019-nCoV, Hypomagnesemia Dc, Hypophosphatemia Dc, ED Hypokalemia, ED Potassium-Rich Foods Activity Restrictions/Additional Instructions: Prescriptions Prescriptions: New ondansetron 4 mg tablet,disintegrating 4 mg PO Q6H PRN (Reason: nausea and vomiting) Qty: 14 RF: 0 No Action meclizine 25 mg tablet 25 mg PO DAILY PRN (Reason: Dizziness) RF: 0 levetiracetam 750 mg tablet 750 mg PO Q12 RF: 0 tamsulosin [Flomax] 0.4 mg capsule 0.4 mg PO DAILY Qty: 10 RF: 0 omeprazole 40 mg capsule,delayed release(DR/EC) 40 mg PO DAILY RF: 0 ondansetron 4 mg tablet,disintegrating 4 mg PO TID PRN (Reason: nausea or vomiting) RF: 0 metoclopramide HCl 10 mg tablet 10 mg PO Q8 PRN (Reason: as directed) RF: 0 Referrals Referrals: Pascual Zhou DO [Primary Care Provider] -
[2021-05-17 17:39] LABS: Appearance Urine Turbid (Clear); Bacteria Urine Automated 1+ (Negative); Bilirubin Urine Negative (Negative); Blood Urine 1+ (Negative); Color Urine Orange; Epithelial Cell Urine Auto >30 /lpf (0-5); Glucose Urine UA Negative (Negative); Ketones Urine 4+ (Negative); Leukocyte Esterase Urine 3+ (Negative); Nitrite Urine Negative (Negative); Protein Urine 1+ (Negative); Specific Gravity Urine > 1.045 (1.000-1.030); Urobilinogen Urine Negative (Negative); WBC Urine Automated >30 /hpf (0-5)
[2021-05-17 17:55] LABS: Amphetamines+Metham, Urine Neg (Neg); Barbiturates, Urine Neg (Neg); Benzodiazepine, Urine Neg (Neg); Cocaine, Urine Neg (Neg); MDMA (Ecstacy), Urine Neg (Neg); Methadone, Urine Neg (Neg); Opiate, Urine Neg (Neg); Phencyclidine, Urine Neg (Neg)
[2021-05-17] MEDS ORDERED: PROCHLORPERAZINE 1 ML IV ONE (18:22)
[2021-05-17] MEDS ORDERED: POTASSIUM CHLORIDE 40 MEQ in LACTATED RINGER'S 1,000 ML IV ONE (20:20)
[2021-05-17] MEDS ORDERED: CEFEPIME 2,000 MG/20 ML VIAL IV STA (20:43)
[2021-05-17 20:49] LABS: Cast Urine Automated 0 /lpf (0-5)
[2021-05-17 20:51] LABS: Trichomonas Urine Present (None Prsent)
--- NOTE | 2021-05-17 21:07 | History & Physical Report ---
Date of Service May 17, 2021 Assessment & Plan (1) Generalized weakness: Plan: Secondary to COVID-19 illness Multifactorial : Hypokalemia, clinical dehydration secondary to poor p.o. intake ? Complicated UTI, history kidney stones, no sepsis for now Leg pain secondary to hypokalemia rule out DVT Trichomoniasis seizure disorder, stable on regimen breast cancer left status post surgery/chemoradiation on Tamoxifen, in remission Hyperglycemia rule out DM OBS GMF Replace potassium, IVF Urine CS, Cefepime LE venous Dopplers rule out DVT Flagyl course for trichomoniasis, patient PCP to retest after 2 weeks (Patient instructed to notify sexual partners of infection and need for testing.) PT eval Check hemoglobin A1c DVT prophylaxis with Lovenox subcu Full code Text document was generated using [employer] voice recognition software. It may contain grammatical or spelling errors. Kindly contact undersigned for clarification of any documentation item in question. History of Present Illness Chief Complaint: Bilateral leg weakness, Covid-19 Primary Care Provider: Pascual Zhou DO History obtained from patient and records. Medical history significant for seizure disorder, breast cancer left status post surgery/chemoradiation on Tamoxifen urolithiasis. Patient seen at the ER last month for flank pain complaints. CT abdomen pelvis showed a 7 mm obstructing calculus in the left proximal ureter below the ureteropelvic junction. This causes moderate left-sided hydronephrosis. Patient subsequently discharged from the ER. Not sure if she passed the stones. Back pain resolved. Patient not feeling well the last few weeks. Poor appetite. Body aches, feeling dehydrated. Bilateral leg weakness with lightheadedness and dizziness. No chest pain, no S OB, no cough symptoms. Patient consulted ER 2 weeks ago. COVID-19 test was positive. Patient completed COVID-19 vaccination outpatient. 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 Serum potassium noted to be 2.8, UA with ketones and trichomonas. CT head initial read no acute intracranial abnormality.Patient given potassium replacement prior to discharge. Advised to isolate herself for 2 weeks after Covid diagnosis. Patient still feeling weak despite rest at home. Both legs feeling weak that she will fall down. No unusual back pain complaints. No chest pain, no S OB, no dysuria symptoms, no headache complaints. Discolored urine without vaginal discharge as per patient. Achy leg pain complaints. Patient returned to ER for evaluation. 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 Allergies Allergy/AdvReac Type Severity Reaction Status Date / Time oxycodone Allergy Severe THROAT Verified 05/17/21 15:16 SWELLING--NOT ALLERGIC TO APAP W/ CODEINE OR VICODIN JEWELRY Allergy Unknown EARRINGS Uncoded 05/17/21 15:16 CAUSE REDNESS AND ITCHING Home Medications Medication Instructions Recorded Confirmed Type levetiracetam 750 mg tablet 750 mg PO Q12 04/13/21 05/17/21 History meclizine 25 mg tablet 25 mg PO DAILY PRN 04/13/21 05/17/21 History tamsulosin 0.4 mg capsule (Flomax) 0.4 mg PO DAILY #10 cap 04/13/21 05/17/21 Rx metoclopramide HCl 10 mg tablet 10 mg PO Q8 PRN 05/05/21 05/17/21 History omeprazole 40 mg capsule,delayed 40 mg PO DAILY 05/05/21 05/17/21 History release ondansetron 4 mg disintegrating 4 mg PO TID PRN 05/05/21 05/17/21 History tablet ondansetron 4 mg disintegrating 4 mg PO Q6H PRN #14 tab 05/17/21 Rx tablet Past Med/Surg History Medical History Malignant neoplasm of upper-outer quadrant of left female breast (08/14/16) "Self detected left breast mass Status post mammography Status post breast and axillary biopsy 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, progesterone receptor positive, HER-2/jeancarlos negative Clinical stage T2 N1 BRCA 1/2 negative Status post chemotherapy with Taxotere, carboplatin, Herceptin, and pertuzumab 6 cycles ongoing treatment with Herceptin Status post skin sparing simple mastectomy and sentinel lymph node biopsy (attempted) then axillary node dissection Stage ypT1mi ypN0 (i+) M0 Initiation of tamoxifen therapy Status post completion of radiation therapy to the left chest wall, supraclavicular area and axilla. Treatment was completed August 26, 2017. 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, progesterone receptor positive, HER-2/jeancarlos negative Clinical stage T2 N1 BRCA 1/2 negative Status post chemotherapy with Taxotere, carboplatin, Herceptin, and pertuzumab 6 cycles ongoing treatment with Herceptin Status post skin sparing simple mastectomy and sentinel lymph node biopsy (attempted) then axillary node dissection Stage ypT1mi ypN0 (i+) M0 Initiation of tamoxifen therapy" On 03/06/17 11:44 Nanda Nathan wrote "Self detected left breast mass Status post mammography Status post breast and axillary biopsy 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, progesterone receptor positive, HER-2/jeancarlos negative Clinical stage T2 N1 BRCA 1/2 negative Status post chemotherapy with Taxotere, carboplatin, Herceptin, and pertuzumab Status post skin sparing simple mastectomy and sentinel lymph node biopsy in (attempted) axillary node dissection Stage ypT1mi ypN0 (i+) M0" Migraine Surgical History Hx of cholecystectomy Social History Smoking Status: Never smoker Hx Alcohol Use: Yes Hx Substance Use: No Preferred Language: Wolof Communication Ability: Effective 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 Beliefs That Will Affect Care: None Current Living Situation: Family Feels Safe at Home: Yes Safety Concerns: Feels Safe At This Time Assistive Devices: None Review of Systems Review of Systems: As per HPI, all 10 systems reviewed, all other ROS negative Physical Exam Physical Exam: GENERAL: uncomfortable, pleasant, no respiratory distress SKIN: Normal color, warm HEENT: [place] palpebral conjunctivae, no ptosis, dry buccal mucosa NECK : Supple, no tenderness CHEST : CTA, no tenderness HEART : RRR, no obvious murmurs ABDOMEN: Some distention, nontender EXTREMITIES : No LE swelling/tenderness, no other conspicuous deformities noted NEUROLOGIC : Coherent, no facial asymmetry, MMTS BUE 4/5, BLE 3/5;, gait and stance not assessed Results & Data Results & Data ([facility] [place]) Vital Signs (Past 12 Hours) Vital Signs Temp Pulse Pulse Resp BP BP Pulse Ox 05/17/21 19:00 87 16 122/83 100 05/17/21 17:58 89 16 118/82 98 05/17/21 16:05 86 17 121/88 100 05/17/21 15:15 110 H 98 05/17/21 14:43 36.7 C 94 H 20 133/91 100 Laboratory Results Laboratory Results WBC 7.82 K/uL (4.8-10.8) 05/17/21 14:40 RBC 4.21 M/uL (4.2-5.4) 05/17/21 14:40 Hgb 11.9 g/dL (12.0-16.0) L 05/17/21 14:40 Hct 33.3 % (37-47) L 05/17/21 14:40 MCV 79.1 fL (80-100) L 05/17/21 14:40 MCH 28.3 pg (25-34) 05/17/21 14:40 MCHC 35.7 g/dL (32-36) 05/17/21 14:40 RDW Std Deviation 39.2 fL (36.4-46.3) 05/17/21 14:40 RDW Coeff of Jayda 14.2 % (11.5-14.5) 05/17/21 14:40 Plt Count 257 K/uL (130-400) 05/17/21 14:40 MPV 10.6 fL (7.4-10.4) H 05/17/21 14:40 Immature Gran % (Auto) 1.2 % 05/17/21 14:40 Neut % (Auto) 71.6 % 05/17/21 14:40 Lymph % (Auto) 20.5 % 05/17/21 14:40 [place] % (Auto) 6.1 % 05/17/21 14:40 Eos % (Auto) 0.1 % 05/17/21 14:40 Baso % (Auto) 0.5 % 05/17/21 14:40 Neut # (Auto) 5.60 K/uL (1.4-6.5) 05/17/21 14:40 Lymph # (Auto) 1.60 K/uL (1.2-3.4) 05/17/21 14:40 [place] # (Auto) 0.48 K/uL (0.11-0.59) 05/17/21 14:40 Eos # (Auto) 0.01 K/uL (0-0.5) 05/17/21 14:40 Baso # (Auto) 0.04 K/uL (0-0.2) 05/17/21 14:40 Immature Gran # (Auto) 0.09 K/uL (0.00-0.02) H 05/17/21 14:40 Sodium 137 mmol/L (136-145) 05/17/21 14:40 Potassium 3.4 mmol/L (3.5-5.1) L 05/17/21 14:40 Chloride 98 mmol/L (98-107) 05/17/21 14:40 Carbon Dioxide 25 mmol/L (21-32) 05/17/21 14:40 Anion Gap 14.0 (3-11) H 05/17/21 14:40 BUN 19 mg/dl (7-18) H 05/17/21 14:40 Creatinine 0.46 mg/dl (0.6-1.2) L 05/17/21 14:40 Est Cr Clr Drug Dosing 133.7 ml/min 05/17/21 14:40 Est GFR ( Amer) 148.3 ml/min 05/17/21 14:40 Est GFR (Non-Af Amer) 128.0 ml/min 05/17/21 14:40 BUN/Creatinine Ratio 41.5 (10-20) H 05/17/21 14:40 Glucose 124 mg/dl (70-99) H 05/17/21 14:40 Calcium 9.5 mg/dl (8.5-10.1) 05/17/21 14:40 Phosphorus 2.0 mg/dl (2.5-4.9) L 05/17/21 14:40 Magnesium 1.7 mg/dl (1.8-2.4) L 05/17/21 14:40 Total Bilirubin 1.1 mg/dl (0.2-1) H 05/17/21 14:40 AST 22 U/L (15-37) 05/17/21 14:40 ALT 19 (12-78) 05/17/21 14:40 Alkaline Phosphatase 84 U/L (45-117) 05/17/21 14:40 Total Creatine Kinase 21 U/L (26-192) L 05/17/21 14:40 Troponin I < 0.015 ng/ml (0-0.045) 05/17/21 14:40 Total Protein 7.6 gm/dl (6.4-8.2) 05/17/21 14:40 Albumin 3.8 gm/dl (3.4-5.0) 05/17/21 14:40 Globulin 3.8 gm/dl (2.5-4.0) 05/17/21 14:40 Albumin/Globulin Ratio 1.0 (0.9-2) 05/17/21 14:40 Lipase 98 U/L (73-393) 05/17/21 14:40 TSH 2.970 uIu/ml (0.300-4.500) 05/17/21 14:40 Urine Color [place] 05/17/21 17:04 Urine Appearance Turbid (Clear) A 05/17/21 17:04 Urine pH 7.0 (4.5-7.5) 05/17/21 17:04 Ur Specific Painter > 1.045 (1.000-1.030) H 05/17/21 17:04 Urine Protein 1+ (Negative) H 05/17/21 17:04 Urine Glucose (UA) Negative (Negative) 05/17/21 17:04 Urine Ketones 4+ (Negative) H 05/17/21 17:04 Urine Blood 1+ (Negative) H 05/17/21 17:04 Urine Nitrite Negative (Negative) 05/17/21 17:04 Urine Bilirubin Negative (Negative) 05/17/21 17:04 Urine Urobilinogen Negative (Negative) 05/17/21 17:04 Ur Leukocyte Esterase 3+ (Negative) H 05/17/21 17:04 Urine WBC (Auto) >30 /hpf (0-5) H 05/17/21 17:04 Urine RBC (Auto) 5-10 /hpf (0-4) H 05/17/21 17:04 U Hyaline Cast (Auto) 0 /lpf (0-5) 05/17/21 17:04 U Epithel Cells (Auto) >30 /lpf (0-5) H 05/17/21 17:04 Urine Bacteria (Auto) 1+ (Negative) H 05/17/21 17:04 Urine Crystals Not Reportable 05/17/21 17:04 Other Crystals Ammonium Biurate (None Prsent) A 05/17/21 17:04 Urine Trichomonas Present (None Prsent) H 05/17/21 17:04 Urine Opiates Screen Neg (Neg) 05/17/21 17:04 Ur Methadone, Qual Neg (Neg) 05/17/21 17:04 Urine Barbiturates Neg (Neg) 05/17/21 17:04 Ur Phencyclidine (PCP) Neg (Neg) 05/17/21 17:04 U Amphetamin/Meth Scrn Neg (Neg) 05/17/21 17:04 MDMA (Ecstasy) Screen Neg (Neg) 05/17/21 17:04 U Benzodiazepines Scrn Neg (Neg) 05/17/21 17:04 Ur Cocaine Metabolite Neg (Neg) 05/17/21 17:04 U Marijuana (THC) Screen Neg (Neg) 05/17/21 17:04 Ethyl Alcohol mg/dL < 3.0 mg/dl (0-3) 05/17/21 15:41 SARS-CoV-2 (PCR) POSITIVE (Negative) A* 05/17/21 16:00 Influenza Type A (PCR) Negative (Neg) 05/17/21 16:00 Influenza Type B (PCR) Negative (Neg) 05/17/21 16:00 RSV (RT-PCR) Negative (Neg) 05/17/21 16:[address] 05/17/21 15:14 CT head/brain wo con CLINICAL HISTORY: 35 years-old Female with Covid, confusion, amnesia. Acutely altered mental status TECHNIQUE: Multiple axial CT images of the head were obtained without contrast. A dose lowering technique was utilized adhering to the principles of ALARA. COMPARISON: Head CT 05/05/2021 FINDINGS: No acute intracranial hemorrhage, midline shift, intra-axial mass, hydrocephalus, territorial ischemia or abnormal extra-axial collection. Unchanged prominent CSF space versus arachnoid cyst interposed between the lateral ventricles. The calvarium is intact. Trace mastoid effusions. Mild to moderate mucosal thickening with air-fluid levels of the right maxillary, left sphenoid and bilateral frontal sinuses with a few opacified anterior right ethmoid air cells. IMPRESSION: 1. No acute intracranial abnormality. 2. Acute sinusitis. ACT 112: Negative or not required by law. The above report was generated using voice recognition software. It may contain grammatical, syntax or spelling errors. Electronically signed by: Holden Navarrete M.D. 05/17/2021 4:47 PM Head CTA 05/17/21 15:14 CT angio neck with con, CT angio head w con CLINICAL HISTORY: 35 years-old Female with Covid, confusion, amnesia. Acutely altered mental status. COMPARISON STUDY: Head CT of same day and also 05/05/2021. TECHNIQUE: Following the IV administration of 120 mL of Optiray, CT angiogram of the head and neck was performed from the aortic arch to the skull apex. Images are reviewed in the axial, sagittal, and coronal planes. 3-D MIPS images are created and assessed. IV contrast was administered without complication. All measurements were calculated based on NASCET criteria. A dose lowering technique was utilized adhering to the principles of ALARA. CT DOSE: 976.85 mGy.cm FINDINGS: Three-vessel morphology of the thoracic aortic arch. Patency of the innominate and imaged subclavian arteries. The common and internal carotid arteries are patent. The middle and anterior cerebral arteries appear patent. The vertebral arteries are codominant and widely patent. The basilar and posterior cerebral arteries are patent. origin of the right posterior cerebral artery. Cerebral venous sinuses are patent. No aneurysm, dissection, high-grade stenosis or arterial occlusion. Unchanged prominent CSF space versus arachnoid cyst interposed between the lateral ventricles. No abnormal intracranial enhancement. The lung apices are clear. There is no pneumothorax. Unremarkable soft tissues. Streak artifact from dental amalgam hardware. Scattered areas of moderate mild to moderate mucosal thickening of the paranasal sinuses with air-fluid levels. No acute fracture. IMPRESSION: 1. Unremarkable CTA of the head and neck. 2. Acute sinus disease. ACT 112: Negative or not required by law. The above report was generated using voice recognition software. It may contain grammatical, syntax or spelling errors. Electronically signed by: Holden Navarrete M.D. 05/17/2021 4:53 PM Neck CTA 05/17/21 15:14 CT angio neck with con, CT angio head w con CLINICAL HISTORY: 35 years-old Female with Covid, confusion, amnesia. Acutely altered mental status. COMPARISON STUDY: Head CT of same day and also 05/05/2021. TECHNIQUE: Following the IV administration of 120 mL of Optiray, CT angiogram of the head and neck was performed from the aortic arch to the skull apex. Images are reviewed in the axial, sagittal, and coronal planes. 3-D MIPS images are created and assessed. IV contrast was administered without complication. All measurements were calculated based on NASCET criteria. A dose lowering technique was utilized adhering to the principles of ALARA. CT DOSE: 976.85 mGy.cm FINDINGS: Three-vessel morphology of the thoracic aortic arch. Patency of the innominate and imaged subclavian arteries. The common and internal carotid arteries are patent. The middle and anterior cerebral arteries appear patent. The vertebral arteries are codominant and widely patent. The basilar and posterior cerebral arteries are patent. origin of the right posterior cerebral artery. Cerebral venous sinuses are patent. No aneurysm, dissection, high-grade stenosis or arterial occlusion. Unchanged prominent CSF space versus arachnoid cyst interposed between the lateral ventricles. No abnormal intracranial enhancement. The lung apices are clear. There is no pneumothorax. Unremarkable soft tissues. Streak artifact from dental amalgam hardware. Scattered areas of moderate mild to moderate mucosal thickening of the paranasal sinuses with air-fluid levels. No acute fracture. IMPRESSION: 1. Unremarkable CTA of the head and neck. 2. Acute sinus disease. ACT 112: Negative or not required by law. The above report was generated using voice recognition software. It may contain grammatical, syntax or spelling errors. Electronically signed by: Holden Navarrete M.D. 05/17/2021 4:53 PM Chest X-Ray 05/17/21 15:15 XR chest 1V portable CLINICAL HISTORY: Atypical chest pain TECHNIQUE: Single frontal radiograph of the chest was obtained. Comparison: Comparison is made to chest one view 05/05/2021 FINDINGS: No lines and tubes are seen. The cardiomediastinal silhouette is normal. The lungs are clear. No evidence of pleural effusion or pneumothorax. IMPRESSION: No acute chest disease. ACT 112: Negative or not required by law. Electronically signed by: Keo Gillette M.D. 05/17/2021 3:53 PM Diagnostic Findings EKG as per my interpretation: Rate 85, NSR, normal axis, nonspecific T wave abnormalities
--- NOTE | 2021-05-17 21:16 | Emergency Department Note ---
ED Visit Note Patient was signed out to me by Dr. Zeng pending evaluation and disposition. The patient does have a known history of covid and did present with weakness w/ n/v. The patient has had some reported leg weakness since she initially presented with her Covid illness approximately 1 week prior. This is virtually unchanged. Patient denies any back pain bowel bladder incontinence or saddle anesthesia. No recent trauma. The patient had negative CT head and CT angiography of the head neck. The patient reportedly had reflexes and no sensory deficits. The patient has proximal weakness raising the bilateral legs but is able to flex and extend at the knee but unable to raise the either leg off the bed. The patient has good ankle flexion and extension. Patient may have a proximal muscle myopathy which could be viral given the patient's Covid illness. The patient is not in any respiratory distress and has good movement of her bilateral upper extremities. No slurred speech or facial droop. Cranial nerves are intact. GBS was considered this and not ascending in nature and per Dr. Zeng the patient had positive reflexes. I did speak to the on-call hospitalist Dr. Arzola and the patient was admitted to the medicine service. .
[2021-05-17] MEDS ORDERED: metroNIDAZOLE 500 MG TAB PO STA (21:19)
[2021-05-17 22:04] LABS: Pregnancy Test, Serum Negative (Negative)
--- NOTE | 2021-05-17 22:05 | Ultrasound Report ---
US venous doppler LE BI CLINICAL HISTORY: Bilateral leg pain COMPARISON: None available at the time of this dictation. TECHNIQUE: Bilateral lower extremity real-time compression venous ultrasound with Color Doppler imagi ng. Utilizing real-time ultrasonic imaging multiple real time high-resolution ultrasonic images with comp ression and noncompression maneuvers of the deep venous system in addition to color doppler imaging w ere performed from the common femoral vein through the proximal calf veins. FINDINGS: Currently there is normal compressibility of the deep venous system from the common femoral vein thro ugh the proximal calf veins. No current evidence of acute thrombosis is identified. Impression: No evidence of deep venous thrombus. ACT 112: Negative or not required by law. Electronically signed by: Chris Zhu M.D. 05/17/2021 10:03 PM
[2021-05-17] MEDS: levETIRAcetam 250 MG TAB PO SCH (22:25)
[2021-05-18] MEDS ORDERED: ACETAMINOPHEN 325 MG TAB PO PRN (00:42)
[2021-05-18] MEDS ORDERED: PROMETHAZINE HCL 12.5 MG in SODIUM CHLORIDE 0.9% 50 ML IV PRN (00:42)
[2021-05-18] MEDS: METOCLOPRAMIDE HCL INJ 5 MG/ML 2 ML VIAL IV PRN (06:30)
[2021-05-18 06:44] LABS: Basophils # (auto) 0.01 K/uL (0-0.2); Basophils % (auto) 0.2 %; Eosinophils # (auto) 0.02 K/uL (0-0.5); Eosinophils % (auto) 0.4 %; Hematocrit (blood only) 24.3 % (37-47); Hemoglobin 8.5 g/dL (12.0-16.0); Immature Granulocytes # (auto) 0.05 K/uL (0.00-0.02); Lymphocytes # (auto) 1.39 K/uL (1.2-3.4); Lymphocytes % (auto) 27.8 %; Mean Corpuscular Hemoglobin 27.9 pg (25-34); Mean Corpuscular Volume 79.7 fL (80-100); Mean Platelet Volume 10.1 fL (7.4-10.4); Monocytes # (auto) 0.28 K/uL (0.11-0.59); Monocytes % (auto) 5.6 %; Neutrophils # (auto) 3.25 K/uL (1.4-6.5); Nucleated RBC # (auto) 0.03 K/uL (0-0); Nucleated RBC % (auto) 0.7 %; Platelet Count 170 K/uL (130-400); RDW Coefficient of Variation 14.4 % (11.5-14.5); RDW Standard Deviation 40.4 fL (36.4-46.3); Red Blood Count 3.05 M/uL (4.2-5.4)
[2021-05-18 07:14] LABS: Blood Urea Nitrogen 7 mg/dl (7-18); Calcium 7.8 mg/dl (8.5-10.1); Carbon Dioxide 23 mmol/L (21-32); Chloride 107 mmol/L (98-107); Creatinine Clr Calc Pharmacy 279.6 ml/min; Est GFR (African American) > 150.0 ml/min; Est GFR (Non-African American) > 150.0 ml/min; Glucose 98 mg/dl (70-99); Magnesium 1.7 mg/dl (1.8-2.4); Phosphorus 1.8 mg/dl (2.5-4.9); Potassium 3.6 mmol/L (3.5-5.1); Sodium 139 mmol/L (136-145)
[2021-05-18 07:37] LABS: Estimated Average Glucose 88 mg/dl; Hemoglobin A1C 4.7 % (4.5-5.6)
[2021-05-18] MEDS: ENOXAPARIN INJ 40 MG/0.4 ML SYR SQ SCH (07:50)
[2021-05-18] MEDS: levETIRAcetam 250 MG TAB PO SCH ×2 (07:50→20:57)
[2021-05-18] MEDS: PANTOprazole 40 MG TAB PO SCH (07:50)
[2021-05-18] MEDS: metroNIDAZOLE 500 MG TAB PO SCH ×2 (07:50→20:57)
[2021-05-18] MEDS: TAMSULOSIN HCL 0.4 MG CAP PO SCH (07:50)
[2021-05-18] MEDS: CEFEPIME 2,000 MG in SYRINGE 0 ML IV SCH ×2 (09:59→20:57)
[2021-05-18] MEDS ORDERED: SODIUM PHOSPHATE 3 MMOL/1 ML INFUSION IV STA (14:22)
[2021-05-18] MEDS ORDERED: SODIUM PHOSPHATE 21 MMOL in SODIUM CHLORIDE 0.9% 500 ML IV ONE (14:30)
--- NOTE | 2021-05-18 14:36 | Hospitalist Progress Note ---
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 Bowel movements normal. She is being managed for the following: #. Generalized weakness #. Metabolic derangements #. Electrolytes abnormality Patient reporting on and off nausea and vomiting after bariatric surgery few months ago this year. Patient also report eating same amount of food 3 times a day as prior to bariatric surgery. Weakness secondary to metabolic derangements which is secondary to nausea and vomiting which is secondary to failure to decrease the size of meals. We will continue to monitor electrolytes and replace as appropriate. Patient advised to eat small high-fiber meals at a time, can increase frequency. Zofran for nausea and vomiting. Continue supportive management. #. Anemia Admitting hemoglobin 11.9, dropped to 8.5 next day. MCV subnormal. Anemia likely secondary to nutritional deficiency likely aggravated by hemodilution with IV fluid resuscitation Get iron profile and vitamin levels Patient might likely need iron tablet as an outpatient FOBT ordered, await results. #. Urolithiasis Patient seen at the ER last month for flank pain complaints. CTAP at the time showed a 7 mm obstructing calculus in the left proximal ureter below the ureteropelvic junction. This causes moderate left-sided hydronephrosis. Patient subsequently discharged from the ER. Patient reports passing a stone yesterday Back pain resolved. #. COVID-19 illness Patient was diagnosed with Covid on 05/05, reports no signs and symptoms Patient has not noticed any increasing nausea or vomiting after being diagnosed with Covid. Asymptomatic currently, no treatment at this time. #. UTI/trichomoniasis Patient reports pain and burning while passing urine, admitting urine culture pending. Discolored urine without vaginal discharge as per patient. Continue with 05/18 cefepime and metronidazole. Patient PCP to retest after 2 weeks (Patient instructed to notify sexual partners of infection and need for testing.) #. Other chronic medical conditions: Seizure disorder, breast cancer left status post surgery/chemo radiation on tamoxifen, in remission Continue with home meds as appropriate. Full code Enoxaparin Disposition: Pending labs stability and improvement in nausea and vomiting, likely DC tomorrow if no new issues arises. Admission and Anticipated Discharge Date Admission Date: May 17, 2021 Subjective Patient was lying in bed, on room air, NAD, no new acute events overnight. Patient reports passing stones in urine yesterday. Patient is on clear liquid diet, to be advanced as tolerated. Patient advised to take small meals at a time, can increase frequency. Patient reports no diarrhea, moving bowels okay. Patient reports nausea and vomiting prior to presentation with has now become better. Patient reports pain and burning while passing urine. Patient denies headache/dizziness/chest pain/palpitation/other review of symptoms. Physical Exam Physical Exam: GENERAL: Alert and oriented x3. NAD, on RA. HEENT: No pallor, no icterus. Pupils equal, round and reactive to light. Oral mucosa moist. NECK: No JVD, no neck masses. HEART: S1 and S2 heard. Regular rate and rhythm. No murmur, no gallop. RESPIRATORY SYSTEM: Normal AP diameter. No accessory muscle use. No wheezing, no crackles. ABDOMEN: Soft, bowel sounds present, nontender, no distention. Healed laparoscopic scar for gastric bypass noted. CENTRAL NERVOUS SYSTEM: No facial droop. Speech is clear. Obeys simple commands. Moves extremities. EXTREMITIES: No edema, no erythema seen. Results & Data Results & Data ([facility]) Vital Signs (Past 12 Hours) Vital Signs Temp Pulse Resp BP Pulse Ox 05/18/21 07:27 36.8 C 92 H 16 122/80 100
[2021-05-18] MEDS: MAGNESIUM SULFATE / D5W 1 GM/100 ML BAG IV SCH ×2 (15:01→17:11)
[2021-05-18 15:11] LABS: Iron 152 mcg/dl (35-150); Total Iron Binding Capacity 176 mcg/dl (250-450); Transferrin 127 mg/dl (200-360); Transferrin (FE) Percent Satur 85 % (15-50)
--- NOTE | 2021-05-18 22:19 | Electrocardiogram Report ---
Test Reason : Blood Pressure : / mmHG Vent. Rate : 086 BPM Atrial Rate : 086 BPM P-R Int : 176 ms QRS Dur : 070 ms QT Int : 410 ms P-R-T Axes : 062 034 054 degrees QTc Int : 490 ms Normal sinus rhythm Low voltage QRS Nonspecific ST and T wave abnormality Prolonged QT Abnormal ECG When compared with ECG of 05-MAY-2021 20:24, T wave inversion less evident in Anterior leads Confirmed by Donis Sharma ([id number]) on 05/18/2021 10:19:08 PM Referred By: REFERRED SELF Confirmed By:Donis Sharma
[2021-05-19 06:54] LABS: Hematocrit (blood only) 24.8 % (37-47); Hemoglobin 8.8 g/dL (12.0-16.0); Mean Corpuscular Hemoglobin 27.8 pg (25-34); Mean Corpuscular Hgb Conc 35.5 g/dL (32-36); Mean Corpuscular Volume 78.5 fL (80-100); Mean Platelet Volume 10.2 fL (7.4-10.4); Platelet Count 176 K/uL (130-400); RDW Standard Deviation 39.1 fL (36.4-46.3); Red Blood Count 3.16 M/uL (4.2-5.4); White Blood Count 3.87 K/uL (4.8-10.8)
[2021-05-19 07:15] LABS: BUN Creatinine Ratio 27.5 (10-20); Blood Urea Nitrogen 6 mg/dl (7-18); Carbon Dioxide 25 mmol/L (21-32); Chloride 102 mmol/L (98-107); Creatinine Clr Calc Pharmacy 279.6 ml/min; Est GFR (African American) > 150.0 ml/min; Est GFR (Non-African American) > 150.0 ml/min; Glucose 102 mg/dl (70-99); Magnesium 1.9 mg/dl (1.8-2.4); Potassium 3.3 mmol/L (3.5-5.1); Sodium 137 mmol/L (136-145)
[2021-05-19 07:20] LABS: Ferritin 1110.9 ng/ml (8-388)
[2021-05-19] MEDS ORDERED: POTASSIUM CHLORIDE CRTAB 20 MEQ TABCR PO STA (07:35)
[2021-05-19] MEDS ORDERED: SODIUM PHOSPHATE 3 MMOL/1 ML INFUSION IV STA (07:36)
[2021-05-19] MEDS ORDERED: SODIUM PHOSPHATE 15 MMOL in SODIUM CHLORIDE 0.9% 250 ML IV ONE (07:45)
[2021-05-19] MEDS: levETIRAcetam 250 MG TAB PO SCH ×2 (08:34→21:33)
[2021-05-19] MEDS: ENOXAPARIN INJ 40 MG/0.4 ML SYR SQ SCH (08:34)
[2021-05-19] MEDS: metroNIDAZOLE 500 MG TAB PO SCH ×2 (08:34→21:34)
[2021-05-19] MEDS: PANTOprazole 40 MG TAB PO SCH (08:35)
[2021-05-19] MEDS: TAMSULOSIN HCL 0.4 MG CAP PO SCH (08:35)
[2021-05-19 08:53] LABS: Folate (Folic Acid) 2.8 ng/ml (>5.38)
[2021-05-19] MEDS: POT PHOSPHATE MONOBASIC W/ SOD TAB PO SCH ×4 (09:09→21:34)
[2021-05-19] MEDS ORDERED: FOLIC ACID 1 MG in SYRINGE 9.8 ML IV STA (09:34)
[2021-05-19] MEDS: FOLIC ACID 1 MG TAB PO SCH (11:15)
[2021-05-19] MEDS: CEFEPIME 2,000 MG in SYRINGE 0 ML IV SCH ×2 (11:15→21:34)
[2021-05-19] MEDS: METOCLOPRAMIDE HCL INJ 5 MG/ML 2 ML VIAL IV PRN (14:24)
--- NOTE | 2021-05-19 19:07 | Hospitalist Progress Note ---
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 Bowel movements normal. She is being managed for the following: #. Generalized weakness #. Metabolic derangements #. Electrolytes abnormality Patient reporting on and off nausea and vomiting after bariatric surgery few months ago this year. Patient also report eating same amount of food 3 times a day as prior to bariatric surgery. Weakness secondary to metabolic derangements which is secondary to nausea and vomiting which is secondary to failure to decrease the size of meals. We will continue to monitor electrolytes and replace as appropriate. Patient advised to eat small high-fiber meals at a time, can increase frequency. Zofran for nausea and vomiting. Continue supportive management. #. Anemia Admitting hemoglobin 11.9, dropped to 8.5 next day. MCV subnormal. Anemia likely secondary to nutritional deficiency likely aggravated by hemodilution with IV fluid resuscitation Iron profile reveals adequate ferritin storage with low folate levels, patient started on folate supplementation, continue upon discharge. FOBT ordered, await results. #. Urolithiasis Patient seen at the ER last month for flank pain complaints. CTAP at the time showed a 7 mm obstructing calculus in the left proximal ureter below the ureteropelvic junction. This causes moderate left-sided hydronephrosis. Patient subsequently discharged from the ER. Patient reports passing a stone yesterday Back pain resolved. #. COVID-19 illness Patient was diagnosed with Covid on 05/05, reports no signs and symptoms Patient has not noticed any increasing nausea or vomiting after being diagnosed with Covid. Asymptomatic currently, no treatment at this time. #. UTI/trichomoniasis Urinalysis positive. Patient reports pain and burning while passing urine, admitting urine culture pending. Discolored urine without vaginal discharge as per patient. Continue with 05/18 cefepime and metronidazole. Patient PCP to retest after 2 weeks (Patient instructed to notify sexual partners of infection and need for testing.) #. Other chronic medical conditions: Seizure disorder, breast cancer left status post surgery/chemo radiation on tamoxifen, in remission Continue with home meds as appropriate. Full code Enoxaparin Disposition: PT/OT recommending rehab. CM to assist with DC planning. Expect discharge in next 1 to 2 days. Admission and Anticipated Discharge Date Admission Date: May 19, 2021 Subjective Patient was lying in bed, on room air, NAD, reports feeling worn out/weak/legs gave out when trying to go to the commode. Also reports vomiting [yellowish] overnight x1. Patient reports eating small portion at a time. Patient advised to take small meals at a time, can increase frequency. Patient reports no diarrhea, moving bowels okay. Patient denies he adache/dizziness/chest pain/palpitation/other review of symptoms. Physical Exam Physical Exam: GENERAL: Alert and oriented x3. NAD, on RA. HEENT: No pallor, no icterus. Pupils equal, round and reactive to light. Oral mucosa moist. NECK: No JVD, no neck masses. HEART: S1 and S2 heard. Regular rate and rhythm. No murmur, no gallop. RESPIRATORY SYSTEM: Normal AP diameter. No accessory muscle use. No wheezing, no crackles. ABDOMEN: Soft, bowel sounds present, nontender, no distention. Healed la paroscopic scar for gastric bypass noted. CENTRAL NERVOUS SYSTEM: No facial droop. Speech is clear. Obeys simple commands. Moves extremities. EXTREMITIES: No edema, no erythema seen. Results & Data Results & Data ([facility]) Vital Signs (Past 12 Hours) Vital Signs Temp Pulse Resp BP Pulse Ox 05/19/21 14:20 36.5 C 112 H 20 120/79 100 05/19/21 07:43 36.7 C 107 H 16 123/87 98
[2021-05-19] MEDS: MELATONIN 3 MG TAB PO SCH (21:33)
[2021-05-19] MEDS: MAGNESIUM OXIDE 400 MG TAB PO SCH (21:33)
[2021-05-19] MEDS ORDERED: POTASSIUM CHLORIDE 40 MEQ in SODIUM CHLORIDE 0.9% 1000ML 1,000 ML IV ONE (23:45)
[2021-05-20 08:45] LABS: Hematocrit (blood only) 24.5 % (37-47); Hemoglobin 8.5 g/dL (12.0-16.0); Mean Corpuscular Hemoglobin 27.6 pg (25-34); Mean Corpuscular Hgb Conc 34.7 g/dL (32-36); Mean Corpuscular Volume 79.5 fL (80-100); Mean Platelet Volume 10.3 fL (7.4-10.4); Platelet Count 165 K/uL (130-400); RDW Coefficient of Variation 14.2 % (11.5-14.5); RDW Standard Deviation 39.7 fL (36.4-46.3); Red Blood Count 3.08 M/uL (4.2-5.4); White Blood Count 3.95 K/uL (4.8-10.8)
[2021-05-20 09:17] LABS: BUN Creatinine Ratio 48.4 (10-20); Blood Urea Nitrogen 8 mg/dl (7-18); Calcium 8.2 mg/dl (8.5-10.1); Carbon Dioxide 21 mmol/L (21-32); Chloride 107 mmol/L (98-107); Creatinine Clr Calc Pharmacy 384.4 ml/min; Est GFR (African American) > 150.0 ml/min; Est GFR (Non-African American) > 150.0 ml/min; Glucose 90 mg/dl (70-99); Phosphorus 1.8 mg/dl (2.5-4.9); Potassium 4.2 mmol/L (3.5-5.1); Sodium 138 mmol/L (136-145)
[2021-05-20] MEDS: ENOXAPARIN INJ 40 MG/0.4 ML SYR SQ SCH (09:17)
[2021-05-20] MEDS: POT PHOSPHATE MONOBASIC W/ SOD TAB PO SCH ×4 (09:17→21:49)
[2021-05-20] MEDS: levETIRAcetam 250 MG TAB PO SCH ×2 (09:18→21:49)
[2021-05-20] MEDS: metroNIDAZOLE 500 MG TAB PO SCH ×2 (09:18→21:48)
[2021-05-20] MEDS: MAGNESIUM OXIDE 400 MG TAB PO SCH ×2 (09:18→21:50)
[2021-05-20] MEDS: PANTOprazole 40 MG TAB PO SCH (09:18)
[2021-05-20] MEDS: TAMSULOSIN HCL 0.4 MG CAP PO SCH (09:18)
[2021-05-20] MEDS: FOLIC ACID 1 MG TAB PO SCH (09:19)
[2021-05-20] MEDS: CEFEPIME 2,000 MG in SYRINGE 0 ML IV SCH ×2 (09:23→21:50)
[2021-05-20] MEDS ORDERED: SODIUM PHOSPHATE 3 MMOL/1 ML INFUSION IV STA (09:24)
[2021-05-20] MEDS ORDERED: SODIUM PHOSPHATE 30 MMOL in SODIUM CHLORIDE 0.9% 500 ML IV ONE (09:30)
[2021-05-20] MEDS: CHOLECALCIFEROL 1,000 UNITS 25 MCG TAB PO SCH (15:49)
[2021-05-20] MEDS: CEROVITE ADV FORMULA TAB PO SCH (15:49)
[2021-05-20] MEDS: THIAMINE HCL 100 MG TAB PO SCH (15:49)
[2021-05-20] MEDS: CALCIUM CITRATE 950 MG TAB PO SCH (17:02)
--- NOTE | 2021-05-20 19:40 | Hospitalist Progress Note ---
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 Bowel movements normal. She is being managed for the following: #. Generalized weakness #. Metabolic derangements #. Electrolytes abnormality Patient reporting on and off nausea and vomiting after bariatric surgery few months ago this year. Patient also report eating same amount of food 3 times a day as prior to bariatric surgery. Weakness secondary to metabolic derangements which is secondary to nausea and vomiting which is secondary to failure to decrease the size of meals. We will continue to monitor electrolytes and replace as appropriate. Patient advised to eat small high-fiber meals at a time, can increase frequency. Zofran for nausea and vomiting. Continue supportive management. #. BLE progressive weakness #. ? Neuropathy/?GBS Patient reports BLE weakness progressing since 4 weeks, weakness up to waist at this point, sensation intact, reflexes decreased/diminished. Patient had gotten flu vaccine 4 months ago, was tested positive for Covid on 05/05. No symptoms of diarrhea in the preceding weeks or months. Given her history of cancer and progressive BLE weakness, will get MRI of C-spine/T-spine and brain. Discussed with neurology, will continue to monitor #. Anemia Admitting hemoglobin 11.9, dropped to 8.5 next day. MCV subnormal. Anemia likely secondary to nutritional deficiency likely aggravated by hemodilution with IV fluid resuscitation Iron profile reveals adequate ferritin storage with low folate levels, patient started on folate supplementation, continue upon discharge. FOBT ordered, await results. #. Urolithiasis Patient seen at the ER last month for flank pain complaints. CTAP at the time showed a 7 mm obstructing calculus in the left proximal ureter below the ureteropelvic junction. This causes moderate left-sided h ydronephrosis. Patient subsequently discharged from the ER. Patient reports passing a stone yesterday Back pain resolved. #. COVID-19 illness Patient was diagnosed with Covid on 05/05, reports no signs and symptoms Patient has not noticed any increasing nausea or vomiting after being diagnosed with Covid. Asymptomatic currently, no treatment at this time. #. UTI/trichomoniasis Urinalysis positive. Patient reports pain and burning while passing urine, admitting urine culture pending. Discolored urine without vaginal discharge as per patient. Continue with 05/18 cefepime and metronidazole. Patient PCP to retest after 2 weeks (Patient instructed to notify sexual partners of infection and need for testing.) #. Other chronic medical conditions: Seizure disorder, breast cancer left status post surgery/chemo radiation on tamoxifen, in remission Continue with home meds as appropriate. Full code Enoxaparin Disposition: PT/OT recommending rehab. CM to assist with DC planning. Expect discharge in next 1 to 2 days. Admission and Anticipated Discharge Date Admission Date: May 19, 2021 Subjective Patient was lying in bed, on room air, NAD, reports feeling worn out/weak/legs gave out when trying to go to the commode again, confirmed by RN. No N and V. Patient reports eating small portion at a time. Patient advised to take small meals at a time, can increase frequency. Patient reports no diarrhea, moving bowels okay. Patient denies headache/dizziness/chest pain/palpitation/other review of symptoms. Physical Exam Physical Exam: GENERAL: Alert and oriented x3. NAD, on RA. HEENT: No pallor, no icterus. Pupils equal, round and reactive to light. Oral mucosa moist. NECK: No JVD, no neck masses. HEART: S1 and S2 heard. Regular rate and rhythm. No murmur, no gallop. RESPIRATORY SYSTEM: Normal AP diameter. No accessory muscle use. No wheezing, no crackles. ABDOMEN: Soft, bowel sounds present, nontender, no distention. Healed laparoscopic scar for gastric bypass noted. CENTRAL NERVOUS SYSTEM: No facial droop. Speech is clear. Obeys simple commands. BLE power 2-3/5, sensation intact and reflexes diminished EXTREMITIES: No edema, no erythema seen. Results & Data Results & Data ([facility]) Vital Signs (Past 12 Hours) Vital Signs Temp Pulse Resp BP Pulse Ox 05/20/21 15:23 36.8 C 111 H 16 119/84 99 05/20/21 07:37 36.9 C 96 H 18 123/83 99
[2021-05-20] MEDS: MELATONIN 3 MG TAB PO SCH (21:49)
[2021-05-21] MEDS ORDERED: GADOBUTROL 65ML VIAL IV ONE (00:53)
[2021-05-21 06:24] LABS: Hematocrit (blood only) 24.7 % (37-47); Hemoglobin 8.5 g/dL (12.0-16.0)
[2021-05-21 06:56] LABS: BUN Creatinine Ratio 36.9 (10-20); Blood Urea Nitrogen 12 mg/dl (7-18); Calcium 8.6 mg/dl (8.5-10.1); Carbon Dioxide 25 mmol/L (21-32); Chloride 106 mmol/L (98-107); Creatinine Clr Calc Pharmacy 186.4 ml/min; Est GFR (African American) > 150.0 ml/min; Est GFR (Non-African American) 142.8 ml/min; Glucose 83 mg/dl (70-99); Magnesium 1.6 mg/dl (1.8-2.4); Phosphorus 3.8 mg/dl (2.5-4.9); Potassium 3.4 mmol/L (3.5-5.1); Sodium 141 mmol/L (136-145)
--- NOTE | 2021-05-21 08:03 | Magnetic Resonance Report ---
MR brain wo/w con CLINICAL HISTORY: BLE weaknes/areflexia/hx of breast Ca. TECHNIQUE: Multiplanar and multisequence MR images of the brain were obtained prior to and following administration of gadolinium contrast. Comparison: None available at the time of this dictation. FINDINGS: No abnormal restricted diffusion is identified. The white matter is unremarkable. The ventricular sys tem is normal in appearance. There is no evidence of acute intraparenchymal hemorrhage. No extra axia l fluid collections are seen. There are no masses, mass effect, or midline shift. No abnormal enhance ment is seen. The corpus callosum, pituitary gland, and cerebellar tonsils appear grossly unremarkab le. Flow voids of the major intracranial arterial vessels are identified. Bilateral opacification of the maxillary and frontal sinuses is noted. Some ethmoid air cells are also affected. IMPRESSION: No acute abnormalities. ACT 112: Negative or not required by law. Electronically signed by: Keo Gillette M.D. 05/21/2021 8:02 AM
--- NOTE | 2021-05-21 08:08 | Magnetic Resonance Report ---
MR OF THE CERVICAL SPINE WITHOUT IV CONTRAST CLINICAL HISTORY: BLE weaknes/areflexia/hx of breast Ca. Comparison: None available at the time of this dictation. TECHNIQUE: MRI of the cervical spine is performed utilizing various T1 and T2 sequences in the axial and sagittal planes. IV contrast was not administered for this examination. FINDINGS: Cervical spine: Vertebral body height and alignment are maintained throughout the cervical spine. The atlantodental articulation appears maintained. No destructive bony lesion is seen. Intervertebral discs: Normal in height and signal intensity. Spinal cord: The cervical spinal cord is normal in morphology and signal intensity. C2-C3: Unremarkable. C3-C4: Unremarkable. C4-C5: Small posterior disc bulge results in mild canal stenosis. C5-C6: Unremarkable. C6-C7: Unremarkable. C7-T1: Unremarkable. Soft tissues: The paraspinous and prevertebral soft tissues are normal in appearance. Brain parenchyma: Partially imaged brain parenchyma at the skull base is within normal limits. IMPRESSION: No acute abnormalities in particular no evidence of abnormal enhancing lesion to suggest metastatic disease. ACT 112: Negative or not required by law. Electronically signed by: Keo Gillette M.D. 05/21/2021 8:06 AM
--- NOTE | 2021-05-21 09:17 | Magnetic Resonance Report ---
MR thoracic spine wo/w con HISTORY: 35 years-old Female pain, hx cancer, acute blurry vision with lower extremity weakness. His tory of breast cancer. COMPARISON: MRI cervical spine of same day, CT abdomen and pelvis 04/13/2021. TECHNIQUE: Multiplanar multisequence MRI of the thoracic spine was obtained both with and without the use of 5.5 cc Gadavist. FINDINGS: The compliance vice president localizer images demonstrate no gross extraspinal abnormality. Increased signal within the right lung base in a linear distribution is partially imaged and incompletely evaluated, likely atele ctasis. There is no abnormal enhancement identified. Signal within the thoracic spinal cord is unrema rkable. The conus medullaris terminates at T11-T12. Mildly motion degraded exam. There is no acute fr acture, subluxation, bone marrow edema, endplate erosion or marrow replacing process. The interverteb ral disc spaces are well-maintained. No significant intervertebral disc space narrowing. There is min imal multilevel anterior endplate spondylitic spurring. No significant central canal or neural forami nal narrowing. IMPRESSION: 1. Unremarkable MRI of the lumbar spine. 2. No suspicious bone lesions or abnormal enhancement. 3. The central canal and neural foramina appear widely patent. 4. Normal signal of the thoracic spinal cord. ACT 112: Negative or not required by law. The above report was generated using voice recognition software. It may contain grammatical, syntax o r spelling errors. Dictated: 05/21/2021 8:31 AM Transcribed: 05/21/2021 9:01 AM Tina [id number] [email or web address] Electronically signed by: Holden Navarrete M.D. 05/21/2021 9:16 AM
[2021-05-21] MEDS: CALCIUM CITRATE 950 MG TAB PO SCH ×3 (10:25→19:18)
[2021-05-21] MEDS: CHOLECALCIFEROL 1,000 UNITS 25 MCG TAB PO SCH (10:26)
[2021-05-21] MEDS: FOLIC ACID 1 MG TAB PO SCH (10:26)
[2021-05-21] MEDS: levETIRAcetam 250 MG TAB PO SCH ×2 (10:27→21:50)
[2021-05-21] MEDS: MAGNESIUM OXIDE 400 MG TAB PO SCH ×2 (10:28→21:51)
[2021-05-21] MEDS: metroNIDAZOLE 500 MG TAB PO SCH ×2 (10:28→21:51)
[2021-05-21] MEDS: TAMSULOSIN HCL 0.4 MG CAP PO SCH (10:29)
[2021-05-21] MEDS: PANTOprazole 40 MG TAB PO SCH (10:29)
[2021-05-21] MEDS: CEROVITE ADV FORMULA TAB PO SCH (10:29)
[2021-05-21] MEDS: THIAMINE HCL 100 MG TAB PO SCH (10:30)
[2021-05-21] MEDS: ENOXAPARIN INJ 40 MG/0.4 ML SYR SQ SCH (10:36)
[2021-05-21] MEDS: CEFEPIME 2,000 MG in SYRINGE 0 ML IV SCH ×2 (10:52→21:50)
[2021-05-21] MEDS ORDERED: POTASSIUM CHLORIDE CRTAB 20 MEQ TABCR PO STA (12:47)
--- NOTE | 2021-05-21 14:26 | Neurology Consultation ---
Date of Consultation May 21, 2021 Assessment & Plan (1) Generalized weakness: 1. no acute findings on MRI brain, c spine, t/l spine 2. CTA head and neck no acute findings The cause for the generalized weakness remains unestablished but electrol yte disturbances are mild, the CPK is normal, imaging of the cervical and thoracic spines and brain are unremarkable or relatively so and examination is concerning for potential postinfectious polyradiculoneuropathy affecting proximal lower extremity muscles in a symmetrical fashion and affecting proximal upper extremity muscles more than distal as well but without sensory loss. At this point we may have to seriously consider a parainfectious Covid induced polyradiculoneuropathy syndrome which certainly has been reported and unfortunately at this institution we do not have EMG or nerve conduction studies available for inpatient use, and the only way of approaching her would be to obtain a lumbar puncture check for albumin/cytoplasmic dissociation and make the diagnosis empirically on this basis Treatment would also be limited to observation, intravenous immunoglobulin or potentially high-dose corticosteroids although the latter are probably not favored an acute parainfectious polyradiculoneuropathy I have suggested that we contact [facility] inpatient service for their advice and regarding a potential transfer for higher level diagnostic and therapeutic measures the latter potentially to include plasma exchange I have discussed his case with her attending physician and may be discussing this further with the [facility] neurology scallop binder later this evening Supervising Physician Co-Signing Physician Notes See above discussion Jose R Gonzalez MD History of Present Illness Reason for Consultation: progressing BLE weakness, ?neuropathy Requesting Physician: Arsenio Maldonado MD Attending Physician: Erica Cesar MD History of Present Illness Consuelo is a 35 year old woman with a PHM- seizure disorder on Keppra, gastric bipass 10/2020, breast cancer, s/p radioation and chemotherapy who presents to [facility] ED 05/17/2021 for evaluation of generalized weakness, nausea with decreased oral intake in the setting of being diagnosed with COVID-19 with symptoms that began last week. She does not recall the details of events today even though she called the ambulance. She was feeling dazed and not sure exactly what led to her arriving to the hospital. She denies having any recent seizures but admits a "small one" could have been possible. She lives alone with her children the eldest who is 14 and taking care of the younger sibling while she is in the ED, but children's father would be available if needed to look after the children. She has a cough but denies chest pain or shortness of breath. She is not vaccinated for COVID-19. Allergies Allergy/AdvReac Type Severity Reaction Status Date / Time oxycodone Allergy Severe THROAT Verified 05/17/21 15:16 SWELLING--NOT ALLERGIC TO APAP W/ CODEINE OR VICODIN JEWELRY Allergy Unknown EARRINGS Uncoded 05/17/21 15:16 CAUSE REDNESS AND ITCHING Home Medications Medication Instructions Recorded Confirmed Type levetiracetam 750 mg tablet 750 mg PO Q12 04/13/21 05/17/21 History meclizine 25 mg tablet 25 mg PO DAILY PRN 04/13/21 05/17/21 History tamsulosin 0.4 mg capsule (Flomax) 0.4 mg PO DAILY #10 cap 04/13/21 05/17/21 Rx metoclopramide HCl 10 mg tablet 10 mg PO Q8 PRN 05/05/21 05/17/21 History omeprazole 40 mg capsule,delayed 40 mg PO DAILY 05/05/21 05/17/21 History release ondansetron 4 mg disintegrating 4 mg PO TID PRN 05/05/21 05/17/21 History tablet ondansetron 4 mg disintegrating 4 mg PO Q6H PRN #14 tab 05/17/21 Rx tablet Patient History Medical History Malignant neoplasm of upper-outer quadrant of left female breast (08/14/16) "Self detected left breast mass Status post mammography Status post breast and axillary biopsy 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, progesterone receptor positive, HER-2/jeancarlos negative Clinical stage T2 N1 BRCA 1/2 negative Status post chemotherapy with Taxotere, carboplatin, Herceptin, and pertuzumab 6 cycles ongoing treatment with Herceptin Status post skin sparing simple mastectomy and sentinel lymph node biopsy (attempted) then axillary node dissection Stage ypT1mi ypN0 (i+) M0 Initiation of tamoxifen therapy Status post completion of radiation therapy to the left chest wall, supraclavicular area and axilla. Treatment was completed August 26, 2017. 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, progesterone receptor positive, HER-2/jeancarlos negative Clinical stage T2 N1 BRCA 1/2 negative Status post chemotherapy with Taxotere, carboplatin, Herceptin, and pertuzumab 6 cycles ongoing treatment with Herceptin Status post skin sparing simple mastectomy and sentinel lymph node biopsy (attempted) then axillary node dissection Stage ypT1mi ypN0 (i+) M0 Initiation of tamoxifen therapy" On 03/06/17 11:44 Nanda Nathan wrote "Self detected left breast mass Status post mammography Status post breast and axillary biopsy 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, progesterone receptor positive, HER-2/jeancarlos neg ative Clinical stage T2 N1 BRCA 1/2 negative Status post chemotherapy with Taxotere, carboplatin, Herceptin, and pertuzumab Status post skin sparing simple mastectomy and sentinel lymph node biopsy in (attempted) axillary node dissection Stage ypT1mi ypN0 (i+) M0" Migraine Surgical History Hx of cholecystectomy Social History Smoking Status: Never smoker Hx Alcohol Use: Yes Hx Substance Use: No Preferred Language: Korean Communication Ability: Effective Molder Machine Required: No Beliefs That Will Affect Care: None marital status: Current Living Situation: Family How many Children do You have: 3 Feels Safe at Home: Yes Safety Concerns: Feels Safe At This Time Assistive Devices: None Review of Systems Review of Systems: Unfortunately Consuelo is mildly encephalopathic and professes not to recall much about when she was told she had Covid is little confused about what day it is, and cannot tell me when she began to complain about left thigh pain weakness of her legs although she thinks it may be a week or so but again is in sure where we are in things it still early May so any review of systems here is totally unreliable Physical Exam Physical Exam: Blood pressure is 126/76 pulse is 97 respirations are 16 she is afebrile and 98% oxygen saturation on room air She does not appear to be in any distress but appears to be weak is a little lassitude is inattentive difficult to keep on task and at times is repetitious but her cranial nerves appear to be intact in terms of eye movements gross visual acuity facial motility and strength facial sensation and I do not see any neck flexor weakness. There are no abnormal involuntary movements drift or pronation sign. Reflexes are hypoactive to absent throughout and toes are downgoing no Rosie signs are seen. She is significantly weak unable to get out of a chair and this is a symmetrical and more proximal affecting the left quadriceps and iliopsoas groups more than the right and sparing distal musculature to a large degree but there is weakness of proximal arm muscles in a similar pattern without the asymmetry and the severity of the weakness is much less but again we have more proximal weakness than distal and sensory examination is intact to vibration light touch and proprioception yet she talks about numbness in her left anterior thigh. She does not describe any neck pain Lhermitte's phenomenon back pain bowel or bladder dysfunction Results & Data ([facility]) Vital Signs (Past 12 Hours) Vital Signs Temp Pulse Resp BP Pulse Ox 05/21/21 08:44 36.8 C 97 H 16 126/76 98 Laboratory Results Abnormal lab results 05/21/21 05/21/21 Range/Units 05:46 05:46 Hgb 8.5 L (12.0-16.0) g/dL Hct 24.7 L (37-47) % Potassium 3.4 L D (3.5-5.1) mmol/L Creatinine 0.33 L (0.6-1.2) mg/dl BUN/Creatinine Ratio 36.9 H (10-20) Magnesium 1.6 L (1.8-2.4) mg/dl Diagnostic Findings MRI T/L- Unremarkable MRI of the lumbar spine. No suspicious bone lesions or abnormal enhancement. The central canal and neural foramina appear widely patent. . Normal signal of the thoracic spinal cord. MRI c spine-No acute abnormalities in particular no evidence of abnormal enhancing lesion to suggest metastatic disease. MRI brain- No acute abnormalities. Unremarkable CTA of the head and neck.
[2021-05-21] MEDS: MAGNESIUM SULFATE / D5W 1 GM/100 ML BAG IV SCH ×2 (15:19→17:32)
--- NOTE | 2021-05-21 19:52 | Hospitalist Progress Note ---
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 Bowel movements normal. She is being managed for the following: #. Generalized weakness #. Metabolic derangements #. Electrolytes abnormality Patient reporting on and off nausea and vomiting after bariatric surgery few months ago this year. Patient also report eating same amount of food 3 times a day as prior to bariatric surgery. Weakness secondary to metabolic derangements which is secondary to nausea and vomiting which is secondary to failure to decrease the size of meals. We will continue to monitor electrolytes and replace as appropriate. Patient advised to eat small high-fiber meals at a time, can increase frequency. Zofran for nausea and vomiting. Continue supportive management. #. BLE progressive weakness #. ? Neuropathy/?GBS Patient reports BLE weakness progressing since 4 weeks, weakness up to waist at this point, sensation intact, reflexes decreased/diminished. Patient had gotten flu vaccine 4 months ago, was tested positive for Covid on 05/05. No symptoms of diarrhea in the preceding weeks or months. Given her history of cancer and progressive BLE weakness, MRI of C-spine/T-spine and brain done--> negative for metastatic disease. Neurology on board, appreciate their recommendation Patient has been accepted to [facility] for further management, will order LP for tomorrow, n.p.o. midnight, stop enoxaparin, paperwork has been done. #. Anemia Admitting hemoglobin 11.9, dropped to 8.5 next day. MCV subnormal. Anemia likely secondary to nutritional deficiency likely aggravated by hemodilution with IV fluid resuscitation Iron profile reveals adequate ferritin storage with low folate levels, patient started on folate supplementation, continue upon discharge. FOBT negative, continue to monitor H&H. #. Urolithiasis Patient seen at the ER last month for flank pain complaints. CTAP at the time showed a 7 mm obstructing calculus in the left proximal ureter below the ureteropelvic junction. This causes moderate left-sided hydronephr osis. Patient subsequently discharged from the ER. Patient reports passing a stone yesterday Back pain resolved. #. COVID-19 illness Patient was diagnosed with Covid on 05/05, reports no signs and symptoms Patient has not noticed any increasing nausea or vomiting after being diagnosed with Covid. Asymptomatic currently, no treatment at this time. Can be off of isolation #. UTI/trichomoniasis Urinalysis positive. Patient reports pain and burning while passing urine, admitting urine culture pending. Discolored urine without vaginal discharge as per patient. Continue with 05/18 cefepime and metronidazole. Patient PCP to retest after 2 weeks (Patient instructed to notify sexual partners of infection and need for testing.) #. Other chronic medical conditions: Seizure disorder, breast cancer left status post surgery/chemo radiation on tamoxifen, in remission Continue with home meds as appropriate. Full code Enoxaparin Disposition: Neurology recommended transfer to [facility], patient accepted at [facility] for likely GBS, paperwork done, awaiting bed availability. Accepting physician Dr. Cabrera, ACLS transport. 05/21: With patient's mother over the phone regarding patient's status and possibility of polyneuropathy likely GBS, again updated during the evening that patient is being transferred to [facility] for the same per neurology recommendation. Admission and Anticipated Discharge Date Admission Date: May 19, 2021 Subjective Patient was lying in bed, on room air, NAD, reports feeling worn out/weak/legs being weak. No N and V. Patient reports eating small portion at a time. Patient advised to take small meals at a time, can increase frequency. Patient reports no diarrhea, moving bowels okay. Patient denies headache/dizziness/chest pain/palpitation/other review of symptoms. Physical Exam Physical Exam: GENERAL: Alert and oriented x3. NAD, on RA. HEENT: No pallor, no icterus. Pupils equal, round and reactive to light. Oral mucosa moist. NECK: No JVD, no neck masses. HEART: S1 and S2 heard. Regular rate and rhythm. No murmur, no gallop. RESPIRATORY SYSTEM: Normal AP diameter. No accessory muscle use. No wheezing, no crackles. ABDOMEN: Soft, bowel sounds present, nontender, no distention. Healed laparoscopic scar for gastric bypass noted. CENTRAL NERVOUS SYSTEM: No facial droop. Speech is clear. Obeys simple commands. BLE power 2-3/5, sensation intact and reflexes diminished EXTREMITIES: No edema, no erythema seen. Results & Data Results & Data ([facility]) Vital Signs (Past 12 Hours) Vital Signs Temp Pulse Resp BP Pulse Ox 05/21/21 17:15 109 H 16 109/78 99 05/21/21 08:44 36.8 C 97 H 16 126/76 98
[2021-05-21] MEDS: MELATONIN 3 MG TAB PO SCH (21:50)
[2021-05-22 07:13] LABS: Hematocrit (blood only) 22.3 % (37-47); Hemoglobin 7.7 g/dL (12.0-16.0)
[2021-05-22 07:53] LABS: BUN Creatinine Ratio 44.9 (10-20); Blood Urea Nitrogen 14 mg/dl (7-18); Carbon Dioxide 24 mmol/L (21-32); Chloride 106 mmol/L (98-107); Creatinine Clr Calc Pharmacy 230.7 ml/min; Est GFR (African American) > 150.0 ml/min; Est GFR (Non-African American) 145.7 ml/min; Glucose 79 mg/dl (70-99); Potassium 3.8 mmol/L (3.5-5.1); Sodium 138 mmol/L (136-145)
[2021-05-22 07:55] LABS: Phosphorus 2.4 mg/dl (2.5-4.9)
[2021-05-22] MEDS ORDERED: SODIUM PHOSPHATE 3 MMOL/1 ML INFUSION IV STA (08:10)
[2021-05-22] MEDS ORDERED: SODIUM PHOSPHATE 15 MMOL in SODIUM CHLORIDE 0.9% 250 ML IV ONE (08:30)
[2021-05-22] MEDS: MAGNESIUM OXIDE 400 MG TAB PO SCH (08:43)
[2021-05-22] MEDS: PANTOprazole 40 MG TAB PO SCH (08:44)
[2021-05-22] MEDS: levETIRAcetam 250 MG TAB PO SCH (08:44)
[2021-05-22] MEDS: metroNIDAZOLE 500 MG TAB PO SCH (08:44)
[2021-05-22] MEDS: TAMSULOSIN HCL 0.4 MG CAP PO SCH (08:45)
[2021-05-22] MEDS: CALCIUM CITRATE 950 MG TAB PO SCH ×3 (08:45→17:42)
[2021-05-22] MEDS: THIAMINE HCL 100 MG TAB PO SCH (08:51)
[2021-05-22] MEDS: FOLIC ACID 1 MG TAB PO SCH (08:51)
[2021-05-22] MEDS: CHOLECALCIFEROL 1,000 UNITS 25 MCG TAB PO SCH (08:51)
[2021-05-22] MEDS: CEROVITE ADV FORMULA TAB PO SCH (08:51)
[2021-05-22 09:28] LABS: Magnesium 1.9 mg/dl (1.8-2.4)
--- NOTE | 2021-05-22 11:39 | Fluoroscopy Report ---
05/22/2021 11:21 AM FL lumbar puncture diagnostic EXAMINATION: Fluoroscopic-guided lumbar puncture. CLINICAL HISTORY: r/o GBS PROCEDURE: After the technique, risks, alternatives, and benefits of the procedure were explained to the patient, signed consent was obtained. A confirmatory timeout was performed prior to initiation o f the procedure. A suitable puncture site at the L4-L5 level was obtained using fluoroscopy. The site was then cleaned and prepped in the usual sterile fashion. A total of 10 mL of 1% lidocaine was inf used into the subcutaneous tissues during the procedure to achieve local anesthesia. Using a 20-gauge 3 1/2 inch spinal needle, the thecal sac was accessed under fluoroscopic guidance with the patient i n the prone position.. Approximately 8 mL of clear CSF was collected into four separate vials. The sp inal needle with stylet in place was removed and pressure was placed over the puncture site until hem ostasis was achieved. There were no immediate complications. The patient tolerated the procedure wel l. IMPRESSION: Fluoroscopic guided lumbar puncture. Approximately 8 mL of clear CSF was collected into f our separate vials. No immediate complications. Fluoroscopy time: 0.1 minutes ACT 112: Negative or not required by law. Electronically signed by: Keo Gillette M.D. 05/22/2021 11:37 AM
[2021-05-22 11:50] LABS: CSF Count Tube # 3
[2021-05-22 11:51] LABS: Appearance CSF Clear; CSF Xanthrochromic No xanthochromia; Color CSF Colorless; Red Blood Cell CSF (A) 1 /uL (0-); Red Blood Cell CSF (B) 0 /uL (0-); White Blood Cell CSF (A) 0 /uL (0-5); White Blood Cell CSF (B) 0 /uL (0-5)
[2021-05-22 11:57] LABS: Total Protein CSF 26.4 mg/dl (15-45)
[2021-05-22] MEDS: CEFEPIME 2,000 MG in SYRINGE 0 ML IV SCH (12:27)
--- NOTE | 2021-05-22 14:26 | Hospitalist Progress Note ---
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 Bowel movements normal. She is being managed for the following: #. Generalized weakness #. Metabolic derangements #. Electrolytes abnormality Patient reporting on and off nausea and vomiting after bariatric surgery few months ago this year. Patient also report eating same amount of food 3 times a day as prior to bariatric surgery. Weakness secondary to metabolic derangements which is secondary to nausea and vomiting which is secondary to failure to decrease the size of meals. We will continue to monitor electrolytes and replace as appropriate. Patient advised to eat small high-fiber meals at a time, can increase frequency. Zofran for nausea and vomiting. Continue supportive management. #. BLE progressive weakness #. ? Neuropathy/?GBS Patient reports BLE weakness progressing since 4 weeks, weakness up to waist at this point, sensation intact, reflexes decreased/diminished. Patient reports bilateral thumb numbness which is new today. Patient had gotten flu vaccine 4 months ago, was tested positive for Covid on 05/05. No symptoms of diarrhea in the preceding weeks or months. Given her history of cancer and progressive BLE weakness, MRI of C-spine/T-spine and brain done--> negative for metastatic disease. 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 Patient has been accepted to [facility] for further management, await LP results 05/22, can resume diet after LP, resume Lovenox from ahmet morning, paperwork has been done. #. Anemia Admitting hemoglobin 11.9, dropped to 8.5 next day. Currently 7.7, MCV subnormal. Anemia likely secondary to nutritional deficiency likely aggravated by hemodilution with IV fluid resuscitation Iron profile reveals adequate ferritin storage with low folate levels, patient started on folate supplementation, continue upon discharge. FOBT negative, continue to monitor H&H. Pt not reporting any headache/dizziness/chest pain or palpitation. #. Urolithiasis Patient seen at the ER last month for flank pain complaints. CTAP at the time showed a 7 mm obstructing calculus in the left proximal ureter below the ureteropelvic junction. This causes moderate left-sided hydronephrosis. Patient subsequently discharged from the ER. Patient reports passing a stone yesterday Back pain resolved. #. COVID-19 illness Patient was diagnosed with Covid on 05/05, reports no signs and symptoms Patient has not noticed any increasing nausea or vomiting after being diagnosed with Covid. Asymptomatic currently, no treatment at this time. Can be off of isolation #. UTI/trichomoniasis Urinalysis positive. Patient reports pain and burning while passing urine, admitting urine culture pending. Discolored urine without vaginal discharge as per patient. Continue with 05/18 cefepime and metronidazole. Patient PCP to retest after 2 weeks (Patient instructed to notify sexual partners of infection and need for testing.) #. Other chronic medical conditions: Seizure disorder, breast cancer left status post surgery/chemo radiation on tamoxifen, in remission Continue with home meds as appropriate. Full code Enoxaparin Disposition: Neurology recommended transfer to [facility], patient accepted at [facility] for likely GBS, paperwork done, awaiting bed availability. Accepting physician Dr. Cabrera, ACLS transport. 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 Admission and Anticipated Discharge Date Admission Date: May 19, 2021 Subjective Patient was lying in bed, on room air, NAD, reports feeling numbness in her bilateral thumb which is new today along with her ongoing bilateral lower extremity weakness not being able to stand up. Patient remains n.p.o. for lumbar puncture today. Resume diet after LP. No N and V. Patient advised to take small meals at a time, can increase frequency. Patient reports no diarrhea, moving bowels okay. Patient denies headache/dizziness/chest pain/palpitation/other review of symptoms. Physical Exam Physical Exam: GENERAL: Alert and oriented x3. NAD, on RA. HEENT: No pallor, no icterus. Pupils equal, round and reactive to light. Oral mucosa moist. NECK: No JVD, no neck masses. HEART: S1 and S2 heard. Regular rate and rhythm. No murmur, no gallop. RESPIRATORY SYSTEM: Normal AP diameter. No accessory muscle use. No wheezing, no crackles. ABDOMEN: Soft, bowel sounds present, nontender, no distention. Healed laparoscopic scar for gastric bypass noted. CENTRAL NERVOUS SYSTEM: No facial droop. Speech is clear. Obeys simple commands. BLE power 2-3/5, sensation intact and reflexes diminished EXTREMITIES: No edema, no erythema seen. Results & Data Results & Data ([facility]) Vital Signs (Past 12 Hours) Vital Signs Temp Pulse Resp BP Pulse Ox 05/22/21 11:42 36.9 C 100 H 18 112/76 100 05/22/21 07:37 36.8 C 89 18 106/73 99 05/22/21 07:36 37.0 C 81 22 124/73 88 L
[2021-05-22 15:12] LABS: Hematocrit (blood only) 22.5 % (37-47); Hemoglobin 7.8 g/dL (12.0-16.0)
--- NOTE | 2021-05-22 16:27 | Communication Note ---
Date of Service: May 22, 2021 Consuelo has been transferred into the second floor Covid unit. She is pretty stable clinically but is still significantly weak. She is a little less co nfused today but is still vague about when the current weakness developed. She admits that she needs assistance getting to the bathroom here in the hospital but states that she does not think she needed at home. She knows she is in [place] she is knows she is in the hospital she knows she has Covid but is vague about when the diagnosis was made and looks like she was confirmed on May 06 make me suspect that she was symptomatic for at least 4 to 5 days before the testing was done at this point I think she is likely noninfectious Weakness probably emerged 10 days to 2 weeks ago but I do not have absolute historical confirmation of that and it appears that it progressed to the point that she was weak enough to present to the hospital in the past several days Exam today shows intact cranial nerves modest proximal weakness of the upper extremities involving deltoids supra and infraspinatus groups but sparing biceps triceps wrist extensors and flexors and hand community health representative but with no discernible reflexes other than triceps jerks bilaterally. In the lower extremities she has significant quadriceps weakness bilaterally worse on the left to the point that she really cannot extend her knees against gravity but the thigh flexors are at most mildly weak, anterior compartment muscles are good posterior compartment muscles are good intrinsic foot muscles are good. She continues to have no discernible reflexes at the ankles or knees and while she complains of sensory loss below the waist I do not really picker packer any objective reduction in vibratory sense light touch temperature proprioception CSF analysis today reveals a protein of 26 without any cells and all other findings are thus far normal so we cannot use this as supportive of the diagnosis of a possible diagnosis of an acute post Covid polyradiculoneuropathy syndrome or "Guillian Condon syndrome" but the exam is certainly suggestive as is the history or at least as much history as we can obtain consistently Currently her exam is stable I do not see evidence for progression has been no proof of any respiratory dysfunction and if indeed she is 2 weeks into this illness already she may not demonstrate any further progress but I am not secure about the 2-week interval and the progression of this disease is really not that predictable I continue to feel she would be better served at a tertiary center where an electrodiagnostic study could be performed (we do not have the capacity here) and therapy can be initiated depending upon close clinical follow-up, respiratory monitoring etc. and should standard IVIG therapy fail then back up with plasma exchange would be available We will see if transfer can be obtained within the next day or so but if she progresses then we will have to use intravenous immunoglobulin here in the standard doses of 0.4 g/kg of body weight daily for 5 days Jose R Gonzalez MD
--- NOTE | 2021-05-22 18:11 | Discharge Summary ---
Date of Service May 22, 2021 Admission HPI Per Admitting Provider History obtained from patient and records. Medical history significant for seizure disorder, breast cancer left status post surgery/chemoradiation on Tamoxifen urolithiasis. Patient seen at the ER last month for flank pain complaints. CT abdomen pelvis showed a 7 mm obstructing calculus in the left proximal ureter below the ureteropelvic junction. This causes moderate left-sided hydronephrosis. Patient subsequently discharged from the ER. Not sure if she passed the stones. Back pain resolved. Patient not feeling well the last few weeks. Poor appetite. Body aches, feeling dehydrated. Bilateral leg weakness with lightheadedness and dizziness. No chest pain, no S OB, no cough symptoms. Patient consulted ER 2 weeks ago. COVID-19 test was positive. Patient completed COVID-19 vaccination outpatient. 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 Serum potassium noted to be 2.8, UA with ketones and trichomonas. CT head initial read no acute intracranial abnormality.Patient given potassium replacement prior to discharge. Advised to isolate herself for 2 weeks after Covid diagnosis. Patient still feeling weak despite rest at home. Both legs feeling weak that she will fall down. No unusual back pain complaints. No chest pain, no S OB, no dysuria symptoms, no headache complaints. Discolored urine without vaginal discharge as per patient. Achy leg pain complaints. Patient returned to ER for evaluation. 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 Admission Exam Per Admitting Provider GENERAL: uncomfortable, pleasant, no respiratory distress SKIN: Normal color, warm HEENT: [place] palpebral conjunctivae, no ptosis, dry buccal mucosa NECK : Supple, no tenderness CHEST : CTA, no tenderness HEART : RRR, no obvious murmurs ABDOMEN: Some distention, nontender EXTREMITIES : No LE swelling/tenderness, no other conspicuous deformities noted NEUROLOGIC : Coherent, no facial asymmetry, MMTS BUE 4/5, BLE 3/5;, gait and stance not assessed Principal Diagnosis Covid induced polyradiculopathy syndrome Discharge Exam GENERAL: Alert and oriented x3. NAD, on RA. HEENT: No pallor, no icterus. Pupils equal, round and reactive to light. Oral mucosa moist. NECK: No JVD, no neck masses. HEART: S1 and S2 heard. Regular rate and rhythm. No murmur, no gallop. RESPIRATORY SYSTEM: Normal AP diameter. No accessory muscle use. No wheezing, no crackles. ABDOMEN: Soft, bowel sounds present, nontender, no distention. Healed laparoscopic scar for gastric bypass noted. CENTRAL NERVOUS SYSTEM: No facial droop. Speech is clear. Obeys simple commands. BLE power 2-3/5, sensation intact and reflexes diminished EXTREMITIES: No edema, no erythema seen. Discharge Data Allergies Allergy/AdvReac Type Severity Reaction Status Date / Time oxycodone Allergy Severe THROAT Verified 05/17/21 15:16 SWELLING--NOT ALLERGIC TO APAP W/ CODEINE OR VICODIN JEWELRY Allergy Unknown [place] Uncoded 05/17/21 15:16 CAUSE REDNESS AND ITCHING Consultations 05/17/21 20:03 ED Decision to Admit Stat 05/20/21 13:46 Consult Neurology Routine Ordered Studies 05/17/21 15:14 CT angio head w con Stat CT angio neck with con Stat CT head/brain wo con Stat 05/17/21 21:07 US venous doppler LE BI Urgent 05/20/21 16:30 MR brain wo/w con Routine MR cervical spine wo/w con Routine 05/20/21 22:47 MR thoracic spine wo/w con Routine 05/22/21 19:08 FL lumbar puncture diagnostic Routine Hospital Course (1) Hypokalemia: (2) Hypophosphatemia: (3) Hypomagnesemia: (4) COVID-19: (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 Bowel movements normal. She is being managed for the following: #. Generalized weakness #. Metabolic derangements #. Electrolytes abnormality Patient reporting on and off nausea and vomiting after bariatric surgery few months ago this year. Patient also report eating same amount of food 3 times a day as prior to bariatric surgery. Weakness secondary to metabolic derangements which is secondary to nausea and vomiting which is secondary to failure to decrease the size of meals. We will continue to monitor electrolytes and replace as appropriate. Patient advised to eat small high-fiber meals at a time, can increase frequency. Zofran for nausea and vomiting. Continue supportive management. #. BLE progressive weakness #. ? Neuropathy/?GBS Patient reports BLE weakness progressing since 4 weeks, weakness up to waist at this point, sensation intact, reflexes decreased/diminished. Patient reports bilateral thumb numbness which is new today. Patient had gotten flu vaccine 4 months ago, was tested positive for Covid on 05/05. No symptoms of diarrhea in the preceding weeks or months. Given her history of cancer and progressive BLE weakness, MRI of C-spine/T-spine and brain done--> negative for metastatic disease. Neurology on board: Recommends transfer to [facility] for higher level diagnostic and therapeutic measures for suspected Covid induced polyradiculopathy syndrome. Patient has been accepted to [facility] for further management, await LP results 05/22, can resume diet after LP, resume Lovenox from ahmet morning, paperwork has been done. #. Anemia Admitting hemoglobin 11.9, dropped to 8.5 next day. Currently 7.7, MCV subnormal. Anemia likely secondary to nutritional deficiency likely aggravated by hemodilution with IV fluid resuscitation Iron profile reveals adequate ferritin storage with low folate levels, patient started on folate supplementation, continue upon discharge. FOBT negative, continue to monitor H&H. Pt not reporting any headache/dizziness/chest pain or palpitation. #. Urolithiasis Patient seen at the ER last month for flank pain complaints. CTAP at the time showed a 7 mm obstructing calculus in the left proximal ureter below the ureteropelvic junction. This causes moderate left-sided hydronephrosis. Patient subsequently discharged from the ER. Patient reports passing a stone yesterday Back pain resolved. #. COVID-19 illness Patient was diagnosed with Covid on 05/05, reports no signs and symptoms Patient has not noticed any increasing nausea or vomiting after being diagnosed with Covid. Asymptomatic currently, no treatment at this time. Can be off of isolation #. UTI/trichomoniasis Urinalysis positive. Patient reports pain and burning while passing urine, admitting urine culture pending. Discolored urine without vaginal discharge as per patient. Continue with 05/18 cefepime and metronidazole. Patient PCP to retest after 2 weeks (Patient instructed to notify sexual partners of infection and need for testing.) #. Other chronic medical conditions: Seizure disorder, breast cancer left status post surgery/chemo radiation on tamoxifen, in remission Continue with home meds as appropriate. Full code Enoxaparin Disposition: Neurology recommended transfer to [facility], patient accepted at [facility] for likely GBS, paperwork done, awaiting bed availability. Accepting physician Dr. Cabrera, ACLS transport. 05/21: With patient's mother over the phone regarding patient's status and possibility of polyneuropathy likely GBS, again updated during the evening that patient is being transferred to [facility] for the same per neurology recommendation. Patient got bed at [facility] and is being transferred there today. Following her her inpatient medications at the time of Discharge: Current Inpatient Medications Acetaminophen (Acetaminophen 325 Mg Tab) 650 mg PO Q6H PRN PRN Reason: Fever/pain Stop: 06/17/21 00:41 Calcium Citrate (Calcium Citrate 950 Mg Tab) 950 mg PO PC [facility] Stop: 06/19/21 17:59 Last Admin: 05/22/21 17:42 Dose: 950 mg Documented by: Cephalexin HCl (Cephalexin 500 Mg Cap) 500 mg PO BID [facility] Stop: 05/24/21 09:01 Enoxaparin Sodium (Enoxaparin Inj 40 Mg/0.4 Ml Syr) 40 mg SQ QAM [facility] Stop: 06/22/21 08:59 Folic Acid (Folic Acid 1 Mg Tab) 1 mg PO QAM [facility] Stop: 06/18/21 09:44 Last Admin: 05/22/21 08:51 Dose: Not Given Documented by: Promethazine HCl 12.5 mg/ (Sodium Chloride) 50.5 mls @ 202 mls/hr IV Q6H PRN PRN Reason: Nausea And Vomiting Stop: 06/17/21 00:41 Last Infusion: 05/18/21 04:02 Dose: Infused Documented by: Levetiracetam (Levetiracetam 250 Mg Tab) 750 mg PO Q12 [facility] Stop: 06/16/21 21:24 Last Admin: 05/22/21 08:44 Dose: 750 mg Documented by: Magnesium Oxide (Magnesium Oxide 400 Mg Tab) 400 mg PO BID [facility] Stop: 06/18/21 20:59 Last Admin: 05/22/21 08:43 Dose: 400 mg Documented by: Magnesium Oxide (Magnesium Oxide 400 Mg Tab) 400 mg PO BID [facility] Stop: 05/24/21 09:01 Melatonin (Melatonin 3 Mg Tab) 3 mg PO HS [facility] Stop: 06/18/21 20:59 Last Admin: 05/21/21 21:50 Dose: 3 mg Documented by: Metoclopramide HCl (Metoclopramide Hcl Inj 5 Mg/Ml 2 Ml Vial) 5 mg IV Q6H PRN PRN Reason: nv Stop: 06/17/21 06:11 Last Admin: 05/19/21 14:24 Dose: 5 mg Documented by: Metronidazole (Metronidazole 500 Mg Tab) 500 mg PO BID [facility] Stop: 05/25/21 08:59 Last Admin: 05/22/21 08:44 Dose: 500 mg Documented by: Multivitamins/Minerals (Cerovite Adv Formula Tab) 1 tab PO QA [facility] Stop: 06/19/21 14:14 Last Admin: 05/22/21 08:51 Dose: Not Given Documented by: Pantoprazole Sodium (Pantoprazole 40 Mg Tab) 40 mg PO DAILY [facility] Stop: 06/17/21 08:59 Last Admin: 05/22/21 08:44 Dose: 40 mg Documented by: Tamsulosin HCl (Tamsulosin Hcl 0.4 Mg Cap) 0.4 mg PO DAILY [facility] Stop: 06/17/21 08:59 Last Admin: 05/22/21 08:45 Dose: 0.4 mg Documented by: Thiamine HCl (Thiamine Hcl 100 Mg Tab) 100 mg PO QAM [facility] Stop: 06/19/21 14:14 Last Admin: 05/22/21 08:51 Dose: Not Given Documented by: Vitamin D (Cholecalciferol 1,000 Units 25 Mcg Tab) 1,000 units PO QAM [facility] Stop: 06/19/21 14:14 Last Admin: 05/22/21 08:51 Dose: Not Given Documented by: Total Time Total Time Spent Total Time Spent (In Minutes): 45 Discharge Plan Discharge Items Patient Disposition: Transfer Acute Care Hospital Reason For Visit: WEAKNESS, HYPOKALEMIA, COVID Discharge Diagnosis: Covid induced polyradiculopathy syndrome Condition on Discharge: Good Activity: As commented below Activity Comment: Bedrest until evaluated at tertiary care center. Non-emergency contact: Primary Care Provider Call non-emergency contact if: you have any medication questions and your temperature is above 101 Follow-up/Referrals: Pascual Zhou DO [Primary Care Provider] - (Date & Time 05/24/2021 9:40 AM Provider Pascual Zhou DO [facility] PLEASE NOTE THAT THIS IS A TELEHEALTH VIDEO APPOINTMENT. PLEASE FOLLOW THE INSTRUCTIONS PROVIDED IN YOUR EMAIL. IF YOU HAVE ANY QUESTIONS REGARDING THIS APPOINTMENT, PLEASE CALL ) Diet: Regular Addtl Attending Provider Instructions: Patient is being discharged to tertiary care center for suspicion of Covid induced polyradiculopathy syndrome. Her inpatient medications are as follows: Current Inpatient Medications Acetaminophen (Acetaminophen 325 Mg Tab) 650 mg PO Q6H PRN PRN Reason: Fever/pain Stop: 06/17/21 00:41 Calcium Citrate (Calcium Citrate 950 Mg Tab) 950 mg PO PC [facility] Stop: 06/19/21 17:59 Last Admin: 05/22/21 17:42 Dose: 950 mg Documented by: Cephalexin HCl (Cephalexin 500 Mg Cap) 500 mg PO BID [facility] Stop: 05/24/21 09:01 Enoxaparin Sodium (Enoxaparin Inj 40 Mg/0.4 Ml Syr) 40 mg SQ QAM [facility] Stop: 06/22/21 08:59 Folic Acid (Folic Acid 1 Mg Tab) 1 mg PO QAM [facility] Stop: 06/18/21 09:44 Last Admin: 05/22/21 08:51 Dose: Not Given Documented by: Promethazine HCl 12.5 mg/ (Sodium Chloride) 50.5 mls @ 202 mls/hr IV Q6H PRN PRN Reason: Nausea And Vomiting Stop: 06/17/21 00:41 Last Infusion: 05/18/21 04:02 Dose: Infused Documented by: Levetiracetam (Levetiracetam 250 Mg Tab) 750 mg PO Q12 [facility] Stop: 06/16/21 21:24 Last Admin: 05/22/21 08:44 Dose: 750 mg Documented by: Magnesium Oxide (Magnesium Oxide 400 Mg Tab) 400 mg PO BID [facility] Stop: 06/18/21 20:59 Last Admin: 05/22/21 08:43 Dose: 400 mg Documented by: Magnesium Oxide (Magnesium Oxide 400 Mg Tab) 400 mg PO BID [facility] Stop: 05/24/21 09:01 Melatonin (Melatonin 3 Mg Tab) 3 mg PO HS [facility] Stop: 06/18/21 20:59 Last Admin: 05/21/21 21:50 Dose: 3 mg Documented by: Metoclopramide HCl (Metoclopramide Hcl Inj 5 Mg/Ml 2 Ml Vial) 5 mg IV Q6H PRN PRN Reason: nv Stop: 06/17/21 06:11 Last Admin: 05/19/21 14:24 Dose: 5 mg Documented by: Metronidazole (Metronidazole 500 Mg Tab) 500 mg PO BID [facility] Stop: 05/25/21 08:59 Last Admin: 05/22/21 08:44 Dose: 500 mg Documented by: Multivitamins/Minerals (Cerovite Adv Formula Tab) [facility] Stop: 06/19/21 14:14 Last Admin: 05/22/21 08:51 Dose: Not Given Documented by: Pantoprazole Sodium (Pantoprazole 40 Mg Tab) 40 mg PO DAILY [facility] Stop: 06/17/21 08:59 Last Admin: 05/22/21 08:44 Dose: 40 mg Documented by: Tamsulosin HCl (Tamsulosin Hcl 0.4 Mg Cap) 0.4 mg PO DAILY [facility] Stop: 06/17/21 08:59 Last Admin: 05/22/21 08:45 Dose: 0.4 mg Documented by: Thiamine HCl (Thiamine Hcl 100 Mg Tab) 100 mg PO QAM [facility] Stop: 06/19/21 14:14 Last Admin: 05/22/21 08:51 Dose: Not Given Documented by: Vitamin D (Cholecalciferol 1,000 Units 25 Mcg Tab) 1,000 units PO QAM [facility] Stop: 06/19/21 14:14 Last Admin: 05/22/21 08:51 Dose: Not Given Documented by: Pending Studies at Discharge: Yes (CLINICAL SOCIAL WORK THERAPIST culture pending) Stand-Alone Forms: Community Health Skilled Items Patient informed of condition?: Yes DNR: No Discharge Level of Care: Other Communicable Disease: No Discharge Prognosis: Deteriorating Lines: Peripheral IV Urinary Catheter: No Medications and DC Order Prescriptions: New ondansetron 4 mg tablet,disintegrating 4 mg PO Q6H PRN (Reason: nausea and vomiting) Qty: 14 RF: 0 Continued meclizine 25 mg tablet 25 mg PO DAILY PRN (Reason: Dizziness) RF: 0 levetiracetam 750 mg tablet 750 mg PO Q12 RF: 0 tamsulosin [Flomax] 0.4 mg capsule 0.4 mg PO DAILY Qty: 10 RF: 0 omeprazole 40 mg capsule,delayed release(DR/EC) 40 mg PO DAILY RF: 0 ondansetron 4 mg tablet,disintegrating 4 mg PO TID PRN (Reason: nausea or vomiting) RF: 0 metoclopramide HCl 10 mg tablet 10 mg PO Q8 PRN (Reason: as directed) RF: 0 Discharge Orders: Discharge Order (Routine); Ordered 05/22/21 Ordered By: Erica Forrester/Other Patient Handouts: GBS Ch, GBS Dc, Guillain-Condon Syndrome Admission Data Admit Date/Time: 05/19/21 12:59 Attending Provider: Erica Cesar Admit Provider: Eric Chan Primary Care Provider: Pascaul Zhou [facility]: [facility] ; Eric Chan ; Elio Sauer
[2021-05-22] MEDS ORDERED: cephALEXin 500 MG CAP PO SCH (21:00)
[2021-05-22] MEDS ORDERED: MAGNESIUM OXIDE 400 MG TAB PO SCH (21:00)
[2021-05-23] MEDS ORDERED: ENOXAPARIN INJ 40 MG/0.4 ML SYR SQ SCH (09:00)
--- NOTE | 2021-06-05 15:56 | Coding Query ---
CODING QUERY To promote full compliance with coding requirements relating to patient care, provider participation is requested in all cases of boarding machine operator uncertainty. Please assist us with the question(s) below: Coding Question(s): There is documentation in the record of COVID-19, and a positive Covid-19 lab result on 05/17, with documentation on the Neurology Communication Note on 05/22 of, "looks like she was confirmed on May 06 make me suspect that she was symptomatic for at least 4 to 5 days before the testing was done at this point I think she is likely noninfectious" and the Discharge Summary documents, "COVID-19 illness Patient was diagnosed with Covid on 05/05, reports no signs and symptoms Patient has not noticed any increasing nausea or vomiting after being diagnosed with Covid. Asymptomatic currently, no treatment at this time. Can be off of isolation". It is not clear if there was active COVID-19 Infection initially on admission or if the COVID-19 Infection was no longer infectious upon admission and never active at any point during this admission. Please specify below, regarding COVID-19 for this admission. ( ) Active COVID-19 Infection upon admission that became non-infectious later in the admission ( ) NO Active COVID-19 Infection at any time during this admission ( x ) Other: Please Specify_recently diagnosed COVID, off of isolation at time of admission per criteria Physician's Response(s): Thank you Cheryl Vázquez Principal Diagnosis: "that condition established after study, to be chiefly responsible for occasioning the admission of the patient to the hospital for care." Co-Existing Principal Diagnosis: "when two or more diagnoses equally meet the criteria for principal diagnosis as determined by the circumstances of admission, diagnostic work up, and/or therapy provided, and the Alphabetic Index, Tabular List, or another coding guideline does not provide sequencing direction, any one of the diagnoses may be sequenced first." "When the physician has documented what appears to be a current diagnosis in the body of the record, but has not included the diagnosis in the final diagnostic statement, the physician should be asked whether the diagnosis should be added." (Source Coding Clinic 2 QTR90. p3-4) STEFFI
== END 2021-05-22 19:06 | disposition short-term general hospital (02) | DRG 95 ==
LOC: 3W 14:34 → ED 14:34 → 3W 05-18 00:10 → 2S 05-21 20:23